=== PATIENT | male | born 1955 | race Caucasian/White ===

== ENCOUNTER 2016-04-18 | Outpatient (CLI) | payer OTHER | END 2016-04-18 12:45 | disposition critical access hospital (66) | CPT/HCPCS: A0425; A0427 ==

== ENCOUNTER 2016-04-18 13:13 | Emergency (ER) | payer OTHER | END 2016-04-18 14:53 | disposition home or self-care (01) | DX: G40.409 Other generalized epilepsy and epileptic syndromes, not intractable, without status epilepticus (principal) ==

== ENCOUNTER 2016-05-10 07:55 | Outpatient (CLI) | payer OTHER | END 2016-05-10 07:56 | disposition home or self-care (01) | DX: E87.6 Hypokalemia (principal); D50.9 Iron deficiency anemia, unspecified ==

== ENCOUNTER 2016-05-11 10:51 | Outpatient (CLI) | payer OTHER | END 2016-05-11 10:52 | disposition home or self-care (01) | DX: R56.9 Unspecified convulsions (principal); R90.89 Other abnormal findings on diagnostic imaging of central nervous system ==

== ENCOUNTER 2016-05-22 08:10 | Outpatient (CLI) | payer OTHER | END 2016-05-22 08:11 | disposition home or self-care (01) | DX: G40.909 Epilepsy, unspecified, not intractable, without status epilepticus (principal) ==

== ENCOUNTER 2016-08-14 08:00 | Outpatient (CLI) | payer OTHER | END 2016-08-14 08:01 | disposition home or self-care (01) | DX: G40.109 Localization-related (focal) (partial) symptomatic epilepsy and epileptic syndromes with simple partial seizures, not intractable, without status epilepticus (principal) ==

== ENCOUNTER 2017-05-22 15:55 | Outpatient (CLI) | payer OTHER | END 2017-05-22 15:56 | disposition critical access hospital (66) | LOC: EMS 15:55 | PROVIDERS: ATTEND Surgery | DX: R53.1 Weakness (principal); R56.9 Unspecified convulsions; R17 Unspecified jaundice | CPT/HCPCS: A0425; A0429 ==

== ENCOUNTER 2017-05-22 16:10 | Inpatient (IN) | payer OTHER ==
--- NOTE | 2017-05-22 16:42 | ED Physician Documentation ---
PD HPI ALTERED MENTAL STATUS - Stated complaint Stated Complaint: WEAKNESS - Chief complaint Chief Complaint: Neuro - History obtained from History obtained from: Patient - History of Present Illness Timing - onset: How many days ago (several days of increased weakness, confusion , less intake.) Timing - duration: Days (few) Timing - details: Gradual onset (daughter noted him to be weak, confused, with increased ascites, and notable jaundice (which he has not had to this degree before.)), Still present Quality / character: Less responsive Associated symptoms: Dyspnea, Cough. No: Fever, Headache, Stiff neck Contributing factors: Recent illness (has had some cough and congestion. feeling of chills. No noted fevers per se.). No: Recent med change Basline status: Alert and oriented X 3, Independent Similar symptoms before: Has not had sx before Review of Systems Constitutional: reports: Chills, Myalgias. denies: Fever Nose: reports: Congestion Throat: denies: Sore throat Cardiac: denies: Chest pain / pressure, Palpitations Respiratory: reports: Cough. denies: Dyspnea GI: reports: Abdominal Swelling. denies: Abdominal Pain, Vomiting, Diarrhea : denies: Dysuria, Frequency Skin: denies: Rash Neurologic: reports: Generalized weakness, Confused, Altered mental status. 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 HEENT: Tonsil/Adenoidectomy - Present Medications Home Medications: Ambulatory Orders Medication Instructions Recorded Confirmed Cetirizine HCl 5 mg PO DAILY PRN 05/22/17 05/22/17 Levetiracetam [Keppra] 500 mg PO BID 05/22/17 05/22/17 Mirtazapine 15 mg PO QPM 05/22/17 05/22/17 Pantoprazole [Protonix] 40 mg PO QDAC 05/22/17 05/22/17 Spironolactone 25 mg PO DAILY 05/22/17 05/22/17 - Allergies Allergies/Adverse Reactions: Allergies Allergy/AdvReac Type Severity Reaction Status Date / Time No Known Drug Allergies Allergy Verified 05/22/17 16:21 - Living Situation Living Situation: reports: With family Living Arrangement: reports: At home - Social History Does the pt smoke?: No Smoking Status: Never smoker Does the pt drink ETOH?: Yes ETOH Use: Beer (decreased amount recently, but still drinks "one" drink daily) Does the pt have substance abuse?: No - Immunizations Immunizations are current?: Yes PD ED PE NORMAL - Vitals Vital signs reviewed: Yes - General General: Alert and oriented X 3, No acute distress - HEENT HEENT: Atraumatic, Other (obvious jaundice and icteric pupils. ) - Neck Neck: Supple, no meningeal sign, No adenopathy - Cardiac Cardiac: RRR, No murmur - Respiratory Respiratory: No: Clear bilaterally (some fine congestion lower left. No wheezes. ) - Abdomen Abdomen: Soft, Non tender, Other (distended without tenseness. Not tender. ) - Male Male : Deferred - Rectal Rectal: Deferred - Back Back: No CVA TTP - Derm Derm: Warm and dry. No: Normal color (pale) - Extremities Extremities: No deformity, No tenderness to palpate, No calf tenderness / cord, Other (1+ edema in both legs to shins. ) - Neuro Neuro: No: Alert and oriented X 3 Eye Opening: To Voice Motor: Obeys Commands Verbal: Confused GCS Score: 13 - Psych Psych: Normal mood. No: Normal affect (flat) Results - Vitals Vitals: Vital Signs - 24 hr 05/22/17 05/22/17 16:16 20:12 Temperature 35.5 C L Heart Rate 99 100 Respiratory 18 20 Rate Blood Pressure 112/96 H 119/97 H O2 Saturation 97 100 Oxygen O2 Source Room air - Labs Labs: Laboratory Tests 05/22/17 05/22/17 05/22/17 17:44 17:44 17:44 WBC 8.1 RBC 4.57 L Hgb 17.0 Hct 49.1 MCV 107.5 H MCH 37.1 H MCHC 34.5 RDW 16.8 H Plt Count 112 L MPV 8.9 Neut # 6.9 H Lymph # 0.3 L [place] # 0.9 Eos # 0.0 Baso # 0.0 Absolute Nucleated RBC 0.03 Nucleated RBC % 0.4 Manual Slide Review Indicated WBC Morphology NORMAL APPEARANCE Platelet Estimate DECREASED (<130,000) Platelet Morphology NORMAL APPEARANCE RBC Morph Micro Appear 1+ POLYCHROMASIA PT INR Sodium 118 L* Potassium 4.4 Chloride 77 L* Carbon Dioxide 16 L Anion Gap 25.0 H BUN 57 H Creatinine 4.0 H Estimated GFR (MDRD) 15 L Glucose 115 H Calcium 8.7 Magnesium 1.8 Total Bilirubin 15.8 H AST 230 H ALT 125 H Alkaline Phosphatase 116 Ammonia 51.4 H B-Natriuretic Peptide Total Protein 5.6 L Albumin 3.2 Globulin 2.4 Albumin/Globulin Ratio 1.3 Lipase 42 TSH Urine Color Urine Clarity Urine pH Ur Specific [place] Urine Protein Urine Glucose (UA) Urine Ketones Urine Occult Blood Urine Nitrite Urine Bilirubin Urine Urobilinogen Ur Leukocyte Esterase Urine RBC Urine WBC Ur Squamous Epith Cells Urine Crystals Urine Bacteria Ur Microscopic Review Urine Culture Comments Salicylates 7.1 Acetaminophen < 10 L Ethyl Alcohol 21.9 05/22/1718 05/22/17 17:44 17:44 17:44 WBC RBC Hgb Hct MCV MCH MCHC RDW Plt Count MPV Neut # Lymph # [place] # Eos # Baso # Absolute Nucleated RBC Nucleated RBC % Manual Slide Review WBC Morphology Platelet Estimate Platelet Morphology RBC Morph Micro Appear PT 18.0 H INR 1.6 H Sodium Potassium Chloride Carbon Dioxide Anion Gap BUN Creatinine Estimated GFR (MDRD) Glucose Calcium Magnesium Total Bilirubin AST ALT Alkaline Phosphatase Ammonia B-Natriuretic Peptide 41 Total Protein Albumin Globulin Albumin/Globulin Ratio Lipase TSH 0.93 Urine Color Urine Clarity Urine pH Ur Specific [place] Urine Protein Urine Glucose (UA) Urine Ketones Urine Occult Blood Urine Nitrite Urine Bilirubin Urine Urobilinogen Ur Leukocyte Esterase Urine RBC Urine WBC Ur Squamous Epith Cells Urine Crystals Urine Bacteria Ur Microscopic Review Urine Culture Comments Salicylates Acetaminophen Ethyl Alcohol 05/22/17 19:20 WBC RBC Hgb Hct MCV MCH MCHC RDW Plt Count MPV Neut # Lymph # [place] # Eos # Baso # Absolute Nucleated RBC Nucleated RBC % Manual Slide Review WBC Morphology Platelet Estimate Platelet Morphology RBC Morph Micro Appear PT INR Sodium Potassium Chloride Carbon Dioxide Anion Gap BUN Creatinine Estimated GFR (MDRD) Glucose Calcium Magnesium Total Bilirubin AST ALT Alkaline Phosphatase Ammonia B-Natriuretic Peptide Total Protein Albumin Globulin Albumin/Globulin Ratio Lipase TSH Urine Color BROWN Urine Clarity CLOUDY Urine pH 5.0 Ur Specific [place] >=1.030 H Urine Protein 30 H Urine Glucose (UA) 100 H Urine Ketones 15 H Urine Occult Blood MODERATE H Urine Nitrite POSITIVE H Urine Bilirubin LARGE H Urine Urobilinogen >=8.0 H Ur Leukocyte Esterase MODERATE H Urine RBC 11-25 H Urine WBC >25 H Ur Squamous Epith Cells MOD Squamous H Urine Crystals 11-25 Bilirubin Urine Bacteria Moderate H Ur Microscopic Review INDICATED Urine Culture Comments NOT INDICATED Salicylates Acetaminophen Ethyl Alcohol - Rads (name of study) head CT Radiology: Prelim report reviewed, EMP read contemporaneously (no acute process. ) chest Radiology: Prelim report reviewed (atelectasis vs infiltrate left base. ) PD MEDICAL DECISION MAKING - ED course Complexity details: reviewed results (ammonia level is minimally elevated. SOdium is very low, so likely accounts for majority of symptoms. Likely dehydrated too with the acute jaundice. ), re-evaluated patient (improved some with IV fluids. Want to raise sodium level slowly. ), considered differential, d /w patient Departure - Departure Disposition: 66 [facility] DC/Xfer Clinical Impression: Hyponatremia Altered mental status Qualifiers: Altered mental status type: delirium Qualified Code(s): R41.0 - Disorientation , unspecified Liver failure without hepatic coma Qualifiers: Liver failure chronicity: unspecified chronicity Qualified Code(s): K72.90 - Hepatic failure, unspecified without coma Ascites Qualifiers: Ascites type: due to alcoholic cirrhosis Qualified Code(s): K70.31 - Alcoholic cirrhosis of liver with ascites Condition: Stable Record reviewed to determine appropriate education?: Yes Discharge Date/Time: 05/22/17 21:36
[2017-05-22] MEDS ORDERED: LACTULOSE 10 GM /15 ML UDC PO STA (17:35)
[2017-05-22] MEDS ORDERED: SODIUM CHLORIDE 0.9% 1,000 ML IV ONE ×2 (17:35→17:36)
[2017-05-22 17:53] LABS: BASOPHILS % (AUTO) 0.1 %; EOSINOPHILS % (AUTO) 0.2 %; LYMPHOCYTES # (AUTO) 0.3 10^3/uL (1.5-3.5); LYMPHOCYTES % (AUTO) 3.2 %; MEAN CORPUSCULAR HEMOGLOBIN 37.1 pg (27.0-31.0); MEAN CORPUSCULAR HGB CONC 34.5 g/dL (32.0-36.0); MEAN CORPUSCULAR VOLUME 107.5 fL (80.0-94.0); MEAN PLATELET VOLUME 8.9 fL (7.4-11.4); MONOCYTES # (AUTO) 0.9 10^3/uL (0.0-1.0); MONOCYTES % (AUTO) 11.2 %; NEUTROPHILS # (AUTO) 6.9 10^3/uL (1.5-6.6); NEUTROPHILS % (AUTO) 85.3 %; PLT - PLATELET COUNT 112 10^3/uL (130-450); RED BLOOD COUNT 4.57 10^6/uL (4.70-6.10); RED CELL DISTRIBUTION WIDTH 16.8 % (12.0-15.0); WHITE BLOOD COUNT 8.1 x10^3/uL (4.8-10.8)
--- NOTE | 2017-05-22 18:27 | CT Preliminary Report ---
Exam: CT HEAD W/O Impression: No intracranial hemorrhage, masses, or other discrete acute intracranial process identified. No dense vessels. Acute stroke is not excluded by CT. SITE ID: [id number]
--- NOTE | 2017-05-22 18:31 | CT Report ---
EXAM: CT HEAD WITHOUT CONTRAST COMPARISON: CT head, 02/26/2016. CLINICAL HISTORY: Confusion, seizure. TECHNIQUE: Axial CT images were obtained from the foramen magnum to the vertex without contrast. In accordance with CT protocol optimization, one or more of the following dose reduction techniques w ere utilized for this exam: automated exposure control, adjustment of mA and/or KV based on patient s ize, or use of iterative reconstructive technique. FINDINGS: No intracranial hemorrhage. No masses. No unexpected intra-axial or extra-axial fluid collections. Dystrophic calcification is demonstrated along the area of the left lateral falx/sigmoid sinus, as be fore. No discrete dense vessels. Visualized orbits, paranasal sinuses and mastoids are unremarkable. Ventricular size is normal. Visualized orbits, paranasal sinuses and mastoids are unremarkable. IMPRESSION: No intracranial hemorrhage, masses, or other discrete acute intracranial process identified. No dense vessels. Acute stroke is not excluded by CT. Referring Provider Line: [phone] SITE ID: [id number]
[2017-05-22 18:33] LABS: PLATELET ESTIMATE, MANUAL DECREASED (<130,000) (NORMAL); PLATELET MORPHOLOGY NORMAL APPEARANCE (NORMAL)
--- NOTE | 2017-05-22 18:35 | XRAY Report ---
EXAM: CHEST RADIOGRAPHY EXAM DATE: 05/22/2017 06:10 PM. CLINICAL HISTORY: Chest pain left sided. COMPARISON: 01/21/2014. TECHNIQUE: 2 views. FINDINGS: Lungs/Pleura: Interval decrease of lung volume. There is a new density overlying the lower lobe on th e lateral image, not well-seen on the frontal image. Upper lung zones are clear. There is no pneumoth orax. Mediastinum: Heart size is normal. Trachea is midline. Other: None. IMPRESSION: New left lower lobe density consistent with atelectasis, pneumonia, infarct, or possibly small left pleural effusion. [facility] Referring Provider Line: [phone] SITE ID: [id number]
[2017-05-22 18:45] LABS: ALBUMIN 3.2 g/dL (3.2-5.5); ALBUMIN/GLOBULIN RATIO 1.3 (1.0-2.2); ALKALINE PHOSPHATASE 116 IU/L (42-121); ALT ALANINE AMINOTRANSFERASE 125 IU/L (10-60); AST ASPARTATE AMINOTRANSFERASE 230 IU/L (10-42); BILIRUBIN,TOTAL 15.8 mg/dL (0.2-1.0); BUN - BLOOD UREA NITROGEN 57 mg/dL (6-20); CALCIUM 8.7 mg/dL (8.5-10.3); CARBON DIOXIDE - CO2 16 mmol/L (21-32); CHLORIDE 77 mmol/L (101-111); GFR - MDRD 15 (>89); GLUCOSE 115 mg/dL (70-100); LIPASE 42 U/L (22-51); MAGNESIUM 1.8 mg/dL (1.7-2.8); SALICYLATE 7.1 mg/dL; SODIUM 118 mmol/L (135-145); TOTAL PROTEIN 5.6 g/dL (6.7-8.2)
[2017-05-22 18:48] LABS: ACETAMINOPHEN < 10 ug/mL (10-30)
[2017-05-22 19:51] LABS: GLUCOSE, URINE (UA) 100 mg/dL (NEGATIVE); KETONES,URINE (UA) 15 mg/dL (NEGATIVE); LEUKOCYTE ESTERASE, URINE MODERATE (NEGATIVE); NITRITE,URINE POSITIVE (NEGATIVE); OCCULT BLOOD,URINE MODERATE (NEGATIVE); PROTEIN,URINE 30 mg/dL (NEGATIVE); UROBILINOGEN,URINE >=8.0 E.U./dL (NORMAL)
[2017-05-22 19:59] LABS: BILIRUBIN,URINE LARGE (NEGATIVE); CLARITY,URINE CLOUDY (CLEAR); ICTOTEST,URINE POSITIVE
[2017-05-22 20:00] LABS: BACTERIA,URINE Moderate /HPF (None Seen); CRYSTALS,URINE 11-25 Bilirubin /LPF; SQUAMOUS EPITHELIAL CELL,UR MOD Squamous (<= Few)
[2017-05-22] MEDS ORDERED: MORPHINE 2 MG/ML CARPUJECT IVP PRN (21:04)
[2017-05-22] MEDS ORDERED: CETIRIZINE 10 MG TABLET PO PRN (21:12)
[2017-05-22 21:15] LABS: INR 1.6 (0.8-1.2)
[2017-05-22] MEDS ORDERED: SODIUM CHLORIDE 0.9% 1,000 ML IV SCH (22:00)
[2017-05-22] MEDS: levETIRAcetam 250 MG TABLET PO SCH (22:09)
[2017-05-22] MEDS: MIRTAZAPINE 15 MG TABLET PO SCH (22:12)
--- NOTE | 2017-05-22 22:21 | CT Preliminary Report ---
Exam: CT ABDOMEN W/O IMPRESSION: 1. Cirrhosis. Heterogeneous liver with numerous hypodensities difficult to characterize on noncontras t CT. These most likely represent regenerative nodules. Consider further evaluation with multiphase l iver MRI or CT. 2. Oche-ks-gwlgcwec ascites. 3. Cholelithiasis. 4. Diverticulosis. 5. Nonobstructing left renal stones. 6. Small left pleural effusion. [facility] SITE ID: [id number]
[2017-05-22] MEDS: PROCHLORPERAZINE 10 MG/2 ML VIAL IVP PRN (22:24)
[2017-05-22] MEDS: SODIUM CHLORIDE FLUSH 0.9% 10 ML SYRINGE IVP SCH (22:24)
--- NOTE | 2017-05-22 22:30 | CT Report ---
EXAM: CT ABDOMEN EXAM DATE: 05/22/2017 09:53 PM. CLINICAL HISTORY: Jaundice, alcohol abuse. COMPARISON: 06/03/2014 CT abdomen pelvis. TECHNIQUE: Routine helical CT imaging was performed through the abdomen. IV contrast: No Enteric con trast: Yes Reconstruction: Coronal and sagittal. In accordance with CT protocol optimization, one or more of the following dose reduction techniques w ere utilized for this exam: automated exposure control, adjustment of mA and/or KV based on patient s ize, or use of iterative reconstructive technique. FINDINGS: Lung Bases: Small left pleural effusion. Liver: Small liver demonstrating nodular contours. There are innumerable hypodensities scattered thro ughout the liver difficult to characterize due to small size and noncontrast technique. Gallbladder/Bile Ducts: There is at least one gallstone noted hyperdense fluid within the gallbladder . No evidence of acute cholecystitis or bile duct obstruction. Spleen: Normal. Pancreas: Normal. Adrenal Glands: Normal. Kidneys: Nonobstructing 7 mm left mid renal stone with 2 punctate stones at the lower pole. The right kidney is unremarkable. Peritoneal Cavity/Bowel: Diverticulosis, no diverticulitis. No bowel obstruction or free air. The bita endix is well visualized and normal. Vasculature: No aneurysms or other significant abnormality. Bones: Interval development of a central compression fracture at L3 which extends through the thickne ss of the vertebra centrally. No acute bony abnormality. Other: None. IMPRESSION: 1. Cirrhosis. Heterogeneous liver with numerous hypodensities difficult to characterize on noncontras t CT. These most likely represent regenerative nodules. Consider further evaluation with multiphase l iver MRI or CT. 2. Awto-tf-aekpjcnf ascites. 3. Cholelithiasis. 4. Diverticulosis. 5. Nonobstructing left renal stones. 6. Small left pleural effusion. [facility] Referring Provider Line: [phone] SITE ID: [id number]
[2017-05-22] MEDS: SUCRALFATE 1 GM/10 ML UDC PO SCH (22:49)
[2017-05-22] MEDS: SODIUM CHLORIDE 0.9% 1,000 ML IV SCH (22:51)
[2017-05-22] MEDS ORDERED: LACTULOSE 10 GM /15 ML UDC PO SCH (23:00)
[2017-05-23] MEDS ORDERED: MULTIVITAMIN IV SCH (01:00)
[2017-05-23] MEDS ORDERED: SODIUM CHLORIDE IV SCH (01:00)
[2017-05-23] MEDS ORDERED: THIAMINE INJ 100 MG, FOLIC ACID INJ 1 MG in SODIUM CHLORIDE 0.9% 100ML 100 ML IV SCH ×6 (01:00)
[2017-05-23] MEDS ORDERED: LORazepam 2 MG/ML VIAL IVP PRN (01:14)
[2017-05-23] MEDS: SODIUM CHLORIDE FLUSH 0.9% 10 ML SYRINGE IVP SCH ×3 (01:34→18:03)
[2017-05-23] MEDS ORDERED: SODIUM CHLORIDE 0.9% 500 ML IV ONE (02:12)
[2017-05-23] MEDS: CIPROFLOXACIN 200 MG/100 ML 100 ML IV SCH ×2 (02:35→14:10)
--- NOTE | 2017-05-23 03:56 | HISTORY & PHYSICAL EXAMINATION ---
DATE OF SERVICE: 05/22/2017 Physician: Val Okeefe MD HISTORY OF PRESENT ILLNESS: This is a 61-year-old, white male with a history of lifelong alcoholism according to his daughter; she gives me most of his history. The patient was from his approximately 20 years ago and became even a more heavy alcoholic than he was during his marriage. This week is emotionally difficult for the patient because of the loss of a child who was 2 days old, many years ago, adding to his binging. The daughter, who lived out of town, has moved back locally for a new job and is now aware of her father's activities , and checks on him frequently. 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 Before that, he would drink after work and heavily on weekends, but now that he has been home for 5 weeks he drinks nearly all day. He drinks approximately a liter of whiskey daily, sometimes more heavily. The daughter reports that approximately a year and a half ago, he had a seizure while at work and was brought to the emergency room, and felt to have alcohol withdrawal seizures. Apparently, he was stabilized and discharged from the ER, never needed admission. The patient has told his 2 daughters that "he bought a condo for their financial benefit after he dies." This daughter also reports that the patient often has comments such as this regarding being ready to . The family has offered him help for alcohol abstinence, and he refuses this. The daughter lived right with the patient during the previous 2 months and witnessed that he had terrible nutrition; he would buy fast food, but only eat part of it or eat little bits of frozen dinners. She has not been living with him for several weeks and was speaking to him on the phone 1 or 2 days ago and noticed that his speech was somewhat slurred and that he was even more confused than his usual. The patient's sister then called him, and the patient mentioned that the daughter was coming over, so the sister called this daughter who agreed that the father was confused and went to check on him. When she entered the residence, she noticed his feces in places on the floor, a broken chair and nearly no food in the residence, and that he had a garbage can near his favorite chair where he would be throwing up. The patient has said to the daughter in the past that he is on medicine for liver disease and possibly for varices. The daughter is not sure that there has ever been hematemesis or coffee grounds in his vomit. The patient reports to me that he fell in his house because of being "unsteady with his gait and needing to hold onto things when he walks. He scraped his left knee" and also has a large bruise surrounding it. This fall was not witnessed, but the daughter did say that one of his chairs to a table set is broken. When the daughter found the patient in this type of condition plus his confusion, he was brought to the emergency room tonight. Since here, he is somewhat confused, but able to answer in short sentences, and was nauseated with vomiting. The vomitus was dark brown in color, but no chao blood. The patient denies to me that he has pain anywhere or that he is short of breath, and as he answers his eyelids close off as if he is exhausted. MEDICATIONS AT HOME were supposed to be the following, but it is unclear if he took them: 1. 5 mg p.o. daily. 2. Keppra 500 mg p.o. b.i.d. 3. Mirtazapine 15 mg p.o. q.p.m. 4. Protonix 40 mg p.o. daily. 5. Spironolactone 25 mg p.o. daily. ALLERGIES: NO KNOWN ALLERGIES. FAMILY HISTORY: Both of the patient's parents were alcoholics. He has two daughters who are healthy. SOCIAL HISTORY: The patient never smoked, except in his 20s. He uses alcohol excessively, as above. The daughter states he uses no illicit drugs, except over 30 years ago he did use some cocaine. He lives alone, is estranged from his ex-, has contact with both daughters and a sister of his. REVIEW OF SYSTEMS: A comprehensive review of systems was performed and the pertinent positives are as listed above. There is a history of lithotripsy of kidney stones. PHYSICAL EXAMINATION GENERAL: Cachectic, white male with a distended abdomen. He speaks in soft tones and short sentences. His eyelids close, as if drifting off to sleep, as he is speaking and he has skin and scleral jaundice. VITAL SIGNS: Blood pressure 112/96, pulse is 100 in sinus rhythm, he is hypothermic at 35.5, oxygen saturation 97% on room air. HEENT: Reveals dry oral mucosa, scleral icterus. No nystagmus. NECK: Without JVD, carotid bruits, thyromegaly, or lymphadenopathy. CHEST: Clear at both bases. HEART: Heart sounds normal. No audible murmur. ABDOMEN: Distended. There is no palpable liver edge. There is probable ascites. Nontender. Normal bowel sounds. EXTREMITIES: No clubbing, cyanosis or edema. The left knee has a large, 5 x 5 cm scrape with a fresh scab and the surrounding entire knee has an ecchymosis. NEUROLOGIC: Confused intermittently, appears fatigued. No liver flap of his arms, otherwise grossly intact. LABORATORIES: Sodium 118, potassium 4.4, BUN 57, creatinine 4.0, magnesium 1.8 , AST 230, ALT 125. Bilirubin 15. Ammonia level 51. BNP 41. TSH normal. INR 1.6. White blood count 8, hemoglobin 17, MCV 107, RDW 16.8, platelet count 112. Serum toxicology has positive salicylates at 7.1. No Tylenol in the system and positive alcohol at 21.9. Urinalysis showed a high specific gravity of 1.030, cloudy, moderate occult blood, positive nitrites, moderate leukocyte esterase, high WBCs and moderate bacteria. IMAGING: Head CT showed no acute findings such as hemorrhage, mass or an intracranial process. Chest x-ray showed left lower lobe density that could be atelectasis or infiltrate or infarct or small pleural effusion, and the heart size is normal. Abdomen CT scan without contrast was done that showed a small left pleural effusion, a small liver with nodular contours that are innumerable and hypodense which could be regenerating nodules. There is mild to moderate ascites. There is mild cholelithiasis without obstruction. There is mild diverticulosis. There is a nonobstructing left renal stone. IMPRESSION/DIAGNOSES 1. Altered mental status, which is probably multifactorial: from dehydration, hyponatremia, a UTI, uremia and alcoholism. 2. Hyponatremia. 3. Jaundice. 4. Renal failure, which could be from hepatorenal syndrome or from severe dehydration. 5. Urinary tract infection. 6. Elevated MCV and elevated INR consistent with liver failure. 7. Alcohol abuse with prior alcohol withdrawal seizures. PLAN: Place the patient in MedSur bed with a CIWA protocol and start Ativan for DT precautions. Begin IV hydration with saline, and follow his hyponatremia and creatinine. Begin thiamine and folate replacement, and follow his liver test and ammonia level. Follow his bilirubin as it appears that there is no obstructive lesion to be causing this elevation. Watch for worsening ascites as he is being hydrated, and then a surgical consult may be necessary for paracentesis. Begin Carafate and stress ulcer prophylaxis with IV Protonix. Begin a soft diet in case there are varices and watch for hematemesis. If the uremia does not improve with hydration, this is a bad prognosis; which was discussed with the daughter. The daughter is not sure if there are any forms in his home indicating his code wishes, she will speak to the aunt (the patient's sister) to determine if anyone knows. At this point, the patient's code status is FULL CODE; however, the daughter believes that the patient would prefer to be a DNR when he is able to make his own choices known. DEEP VENOUS THROMBOSIS PROPHYLAXIS: SCDs. CODE STATUS: FULL CODE. ATTESTATION: The patient is expected to be discharged or transferred to another facility within 96 hours: Yes. TD: 05/23/2017 03:54 ISA
[2017-05-23 05:31] LABS: BASOPHILS % (AUTO) 0.2 %; EOSINOPHILS % (AUTO) 0.1 %; HGB - HEMOGLOBIN 15.8 g/dL (14.0-18.0); LYMPHOCYTES # (AUTO) 0.3 10^3/uL (1.5-3.5); LYMPHOCYTES % (AUTO) 4.1 %; MEAN CORPUSCULAR HGB CONC 34.4 g/dL (32.0-36.0); MEAN CORPUSCULAR VOLUME 107.5 fL (80.0-94.0); MEAN PLATELET VOLUME 8.9 fL (7.4-11.4); MONOCYTES # (AUTO) 0.6 10^3/uL (0.0-1.0); MONOCYTES % (AUTO) 8.8 %; NEUTROPHILS # (AUTO) 5.9 10^3/uL (1.5-6.6); NEUTROPHILS % (AUTO) 86.8 %; PLT - PLATELET COUNT 85 10^3/uL (130-450); RED BLOOD COUNT 4.28 10^6/uL (4.70-6.10); RED CELL DISTRIBUTION WIDTH 16.7 % (12.0-15.0); WHITE BLOOD COUNT 6.8 x10^3/uL (4.8-10.8)
[2017-05-23 05:45] LABS: ALBUMIN 2.7 g/dL (3.2-5.5); ALBUMIN/GLOBULIN RATIO 1.2 (1.0-2.2); BILIRUBIN,TOTAL 14.5 mg/dL (0.2-1.0); CREATININE 4.5 mg/dL (0.6-1.2); TOTAL PROTEIN 4.9 g/dL (6.7-8.2)
[2017-05-23] MEDS ORDERED: SODIUM CHLORIDE 0.9% 50 ML IV ONE (06:00)
[2017-05-23] MEDS: THIAMINE INJ 100 MG in SODIUM CHLORIDE 0.9% 50 ML IV SCH (06:07)
[2017-05-23] MEDS: PANTOPRAZOLE 40 MG VIAL IVP SCH (06:09)
[2017-05-23] MEDS: SODIUM CHLORIDE FLUSH 0.9% 10 ML SYRINGE IVP PRN (06:09)
[2017-05-23] MEDS: SUCRALFATE 1 GM/10 ML UDC PO SCH ×4 (06:16→21:18)
[2017-05-23] MEDS: LACTULOSE 10 GM /15 ML UDC PO SCH (08:39)
[2017-05-23] MEDS: POLYETHYLENE GLYCOL 3350 17 GM PACKET PO SCH (08:39)
[2017-05-23] MEDS: levETIRAcetam 250 MG TABLET PO SCH ×2 (08:42→20:32)
[2017-05-23] MEDS: SODIUM CHLORIDE 1 GM TABLET PO SCH ×3 (08:44→17:41)
[2017-05-23] MEDS ORDERED: NITROFURANTOIN MACRO 100 MG CAPSULE PO SCH (09:00)
[2017-05-23] MEDS ORDERED: SODIUM CHLORIDE 3% HYPERTONIC 500 ML IV SCH (10:00)
[2017-05-23 12:45] LABS: CALCIUM 8.1 mg/dL (8.5-10.3); CREATININE 4.7 mg/dL (0.6-1.2)
[2017-05-23 15:24] LABS: CALCIUM 7.8 mg/dL (8.5-10.3); CREATININE 4.9 mg/dL (0.6-1.2)
--- NOTE | 2017-05-23 17:44 | PROVIDER PROGRESS NOTE ---
Subjective - Prog Note Date Prog Note Date: 05/23/17 Prog Note Time: 16:00 - Subjective Pt reports feeling: Improved (Pt says he feels better but still seems significantly obtunded. Oriented to person, place, year and president.) Current Medications - Current Medications Current Medications: Zyrtec, Cipro, lactulose, Keppra, lorazepam, mirtazapine, morphine, Pantoprazole , polyethylene glycol, prochlorperazine, sodium chloride, Carafate, thiamine Objective - Vital Signs/Intake & Output Reviewed Vital Signs: Yes Vital Signs: Vital Signs x48h Temp Pulse Resp BP Pulse Ox 05/23/17 16:00 36.6 C 106 H 20 103/65 92 Intake & Output: Intake & Output 05/20/17 05/21/17 05/22/17 05/23/17 23:59 23:59 23:59 23:59 Intake Total 1100 1609.533 Output Total 100 260 Balance 1000 1349.533 - Objective General Appearance: positive: No acute distress, Lethargic Eyes Bilateral: positive: Normal inspection, EOMI, No lid inflammation, Other ( Scleral icterus noted on exam.) ENT: positive: ENT inspection nml, Pharynx nml, No signs of dehydration Neck: positive: Nml inspection, Thyroid nml, No JVD, Trachea midline. negative : Thyromegaly Respiratory: positive: Chest non-tender, No respiratory distress, Breath sounds nml. negative: Wheezes, Rales, Rhonchi Cardiovascular: positive: Regular rate & rhythm, No murmur, No gallop Abdomen: positive: Non-tender, No organomegaly, Nml bowel sounds, No distention. negative: Guarding, Rebound Back: positive: Nml inspection. negative: CVA tenderness (R), CVA tenderness (L ) Skin: positive: Color nml, No rash, Warm, Dry. negative: Cyanosis Extremities: positive: Non-tender, Full ROM, Nml appearance, No pedal edema Neurologic/Psychiatric: positive: Weakness, Depressed mood/affect, Other (The patient is obtunded but less so than he had been previous to the administration of hypertonic saline.). negative: Facial droop, Slurred/abnml speech - Lab Results Fish Bones: 05/23/17 05:20 05/23/17 14:51 Other Labs: Lab Results x24hrs 05/23/17 05/23/17 05/23/17 Range/Units 14:51 12:29 05:20 WBC (4.8-10.8) x10^3/uL RBC (4.70-6.10) 10^6/uL Hgb (14.0-18.0) g/dL Hct (42.0-52.0) % MCV (80.0-94.0) fL MCH (27.0-31.0) pg MCHC (32.0-36.0) g/dL RDW (12.0-15.0) % Plt Count (130-450) 10^3/uL MPV (7.4-11.4) fL Neut # (1.5-6.6) 10^3/uL Lymph # (1.5-3.5) 10^3/uL Spink # (0.0-1.0) 10^3/uL Eos # (0.0-0.7) 10^3/uL Baso # (0.0-0.1) 10^3/uL Absolute Nucleated RBC x10^3/uL Nucleated RBC % /100WBC Sodium 121 L 123 L (135-145) mmol/L Potassium 4.4 4.2 (3.5-5.0) mmol/L Chloride 86 L 83 L (101-111) mmol/L Carbon Dioxide 18 L 19 L (21-32) mmol/L Anion Gap 17.0 H 21.0 H (6-13) BUN 65 H 63 H (6-20) mg/dL Creatinine 4.9 H 4.7 H (0.6-1.2) mg/dL Estimated GFR (MDRD) 12 L 13 L (>89) Glucose 185 H 179 H (70-100) mg/dL Calcium 7.8 L 8.1 L (8.5-10.3) mg/dL Total Bilirubin (0.2-1.0) mg/dL AST (10-42) IU/L ALT (10-60) IU/L Alkaline Phosphatase (42-121) IU/L Ammonia 111.3 H* (7-35) umol/L Total Protein (6.7-8.2) g/dL Albumin (3.2-5.5) g/dL Globulin (2.1-4.2) g/dL Albumin/Globulin Ratio (1.0-2.2) 05/23/17 05/23/17 Range/Units 05:20 05:20 WBC 6.8 (4.8-10.8) x10^3/uL RBC 4.28 L (4.70-6.10) 10^6/uL Hgb 15.8 (14.0-18.0) g/dL Hct 46.1 (42.0-52.0) % MCV 107.5 H (80.0-94.0) fL MCH 37.0 H (27.0-31.0) pg MCHC 34.4 (32.0-36.0) g/dL RDW 16.7 H (12.0-15.0) % Plt Count 85 L (130-450) 10^3/uL MPV 8.9 (7.4-11.4) fL Neut # 5.9 (1.5-6.6) 10^3/uL Lymph # 0.3 L (1.5-3.5) 10^3/uL Spink # 0.6 (0.0-1.0) 10^3/uL Eos # 0.0 (0.0-0.7) 10^3/uL Baso # 0.0 (0.0-0.1) 10^3/uL Absolute Nucleated RBC 0.02 x10^3/uL Nucleated RBC % 0.3 /100WBC Sodium 120 L* (135-145) mmol/L Potassium 4.2 (3.5-5.0) mmol/L Chloride 83 L (101-111) mmol/L Carbon Dioxide 17 L (21-32) mmol/L Anion Gap 20.0 H (6-13) BUN 59 H (6-20) mg/dL Creatinine 4.5 H (0.6-1.2) mg/dL Estimated GFR (MDRD) 13 L (>89) Glucose 147 H (70-100) mg/dL Calcium 8.0 L (8.5-10.3) mg/dL Total Bilirubin 14.5 H (0.2-1.0) mg/dL AST 209 H (10-42) IU/L ALT 118 H (10-60) IU/L Alkaline Phosphatase 100 (42-121) IU/L Ammonia (7-35) umol/L Total Protein 4.9 L (6.7-8.2) g/dL Albumin 2.7 L (3.2-5.5) g/dL Globulin 2.2 (2.1-4.2) g/dL Albumin/Globulin Ratio 1.2 (1.0-2.2) - Diagnostic Imaging Diagnostic Imaging Results: positive: Final report reviewed Diagnostic Imaging Comments: EXAM: CHEST RADIOGRAPHY EXAM DATE: 05/22/2017 06:10 PM. CLINICAL HISTORY: Chest pain left sided. COMPARISON: 01/21/2014. TECHNIQUE: 2 views. FINDINGS: Lungs/Pleura: Interval decrease of lung volume. There is a new density overlying the lower lobe on the lateral image, not well-seen on the frontal image. Upper lung zones are clear. There is no pneumothorax. Mediastinum: Heart size is normal. Trachea is midline. Other: None. IMPRESSION: New left lower lobe density consistent with atelectasis, pneumonia, infarct, or possibly small left pleural effusion. EXAM: CT HEAD WITHOUT CONTRAST COMPARISON: CT head, 02/26/2016. CLINICAL HISTORY: Confusion, seizure. TECHNIQUE: Axial CT images were obtained from the foramen magnum to the vertex without contrast. In accordance with CT protocol optimization, one or more of the following dose reduction techniques were utilized for this exam: automated exposure control, adjustment of mA and/or KV based on patient size, or use of iterative reconstructive technique. FINDINGS: No intracranial hemorrhage. No masses. No unexpected intra-axial or extra-axial fluid collections. Dystrophic calcification is demonstrated along the area of the left lateral falx /sigmoid sinus, as before. No discrete dense vessels. Visualized orbits, paranasal sinuses and mastoids are unremarkable. Ventricular size is normal. Visualized orbits, paranasal sinuses and mastoids are unremarkable. IMPRESSION: No intracranial hemorrhage, masses, or other discrete acute intracranial process identified. No dense vessels. Acute stroke is not excluded by CT. EXAM: CT ABDOMEN EXAM DATE: 05/22/2017 09:53 PM. CLINICAL HISTORY: Jaundice, alcohol abuse. COMPARISON: 06/03/2014 CT abdomen pelvis. TECHNIQUE: Routine helical CT imaging was performed through the abdomen. IV contrast: No Enteric contrast: Yes Reconstruction: Coronal and sagittal. In accordance with CT protocol optimization, one or more of the following dose reduction techniques were utilized for this exam: automated exposure control, adjustment of mA and/or KV based on patient size, or use of iterative reconstructive technique. FINDINGS: Lung Bases: Small left pleural effusion. Liver: Small liver demonstrating nodular contours. There are innumerable hypodensities scattered throughout the liver difficult to characterize due to small size and noncontrast technique. Gallbladder/Bile Ducts: There is at least one gallstone noted hyperdense fluid within the gallbladder. No evidence of acute cholecystitis or bile duct obstruction. Spleen: Normal. Pancreas: Normal. Adrenal Glands: Normal. Kidneys: Nonobstructing 7 mm left mid renal stone with 2 punctate stones at the lower pole. The right kidney is unremarkable. Peritoneal Cavity/Bowel: Diverticulosis, no diverticulitis. No bowel obstruction or free air. The appendix is well visualized and normal. Vasculature: No aneurysms or other significant abnormality. Bones: Interval development of a central compression fracture at L3 which extends through the thickness of the vertebra centrally. No acute bony abnormality. Other: None. IMPRESSION: 1. Cirrhosis. Heterogeneous liver with numerous hypodensities difficult to characterize on noncontrast CT. These most likely represent regenerative nodules. Consider further evaluation with multiphase liver MRI or CT. 2. [id number]-[id number] ascites. 3. Cholelithiasis. 4. Diverticulosis. 5. Nonobstructing left renal stones. 6. Small left pleural effusion. Assessment/Plan - Problem List (1) Altered mental status Impression: The patient is obtunded and this did improve slightly with the administration of hypertonic saline which was given for severe hyponatremia of 118. I will continue to administer 200ml more of 3%NS as the latest sodium level was 121. Will recheck a BMP this evening. Qualifiers: Altered mental status type: delirium Qualified Code(s): R41.0 - Disorientation, unspecified (2) Hyponatremia Impression: Severe. The patient has received 300 mL of 3% hypertonic saline and his sodium level has only come up a few points, but is no longer critical. I will administer another 200 mL and recheck the levels this evening. I am also giving the patient oral salt tablets when he can take them. (3) Alcohol abuse Impression: Severe. The patient reportedly drinks a quart of whiskey daily. He has cirrhosis with mild to moderate ascites and he is still obtunded. We have him on [facility] protocol for ETOH withdrawl with PRN ativan. (4) Prerenal acute renal failure Impression: The patient's creatinine is continuing to worsen despite administration of IV fluids. This may be in part due to the hypertonic saline he is getting for his severe hyponatremia. We will continue to hydrate the patient and monitor his creatinine closely.Previous admissions had his creatinine at less than 1. It is at 4.9 at this time. (5) Cirrhosis of liver with ascites Impression: The patient's alcoholism has caused significant cirrhosis with the associated expected electrolyte abnormalities. His cirrhosis has not caused a large enough ascites that warrants draining at this time. We will monitor him closely and look for signs of regeneration from his liver. Qualifiers: Hepatic cirrhosis type: alcoholic cirrhosis Qualified Code(s): K70.31 - Alcoholic cirrhosis of liver with ascites
[2017-05-23] MEDS ORDERED: SODIUM CHLORIDE 3% IV SCH (18:15)
[2017-05-23] MEDS ORDERED: HYPERTONIC IV SCH (18:15)
[2017-05-23] MEDS: SODIUM CHLORIDE 0.9% 1,000 ML IV SCH (18:37)
[2017-05-23 19:12] LABS: CALCIUM 7.9 mg/dL (8.5-10.3); CREATININE 4.7 mg/dL (0.6-1.2)
[2017-05-23] MEDS: LORazepam 0.5 MG TABLET PO PRN (19:40)
[2017-05-23] MEDS: MIRTAZAPINE 15 MG TABLET PO SCH (20:32)
[2017-05-24] MEDS: CIPROFLOXACIN 200 MG/100 ML 100 ML IV SCH ×2 (02:05→13:23)
[2017-05-24] MEDS: SUCRALFATE 1 GM/10 ML UDC PO SCH ×4 (06:51→20:50)
[2017-05-24] MEDS: SODIUM CHLORIDE FLUSH 0.9% 10 ML SYRINGE IVP PRN (06:52)
[2017-05-24] MEDS: SODIUM CHLORIDE FLUSH 0.9% 10 ML SYRINGE IVP SCH ×3 (06:52→20:53)
[2017-05-24] MEDS: PANTOPRAZOLE 40 MG VIAL IVP SCH (06:52)
[2017-05-24] MEDS: LACTULOSE 10 GM /15 ML UDC PO SCH (08:31)
[2017-05-24] MEDS: SODIUM CHLORIDE 1 GM TABLET PO SCH ×2 (08:31→11:54)
[2017-05-24] MEDS: SODIUM CHLORIDE 0.9% 1,000 ML IV SCH ×4 (08:31→22:34)
[2017-05-24] MEDS: levETIRAcetam 250 MG TABLET PO SCH ×2 (08:31→20:47)
[2017-05-24] MEDS: POLYETHYLENE GLYCOL 3350 17 GM PACKET PO SCH (08:31)
[2017-05-24 09:27] LABS: CALCIUM 7.7 mg/dL (8.5-10.3)
[2017-05-24] MEDS ORDERED: NIFEdipine ER 30 MG TABLET PO SCH (10:00)
--- NOTE | 2017-05-24 13:47 | PROVIDER PROGRESS NOTE ---
Subjective - Prog Note Date Prog Note Date: 05/24/17 Prog Note Time: 13:23 - Subjective Pt reports feeling: Improved (Pt is more responsive, less obtunded) Current Medications - Current Medications Current Medications: Zyrtec, Cipro, lactulose, Keppra, lorazepam, mirtazapine, morphine, Pantoprazole , polyethylene glycol, prochlorperazine, sodium chloride, Carafate, thiamine Objective - Vital Signs/Intake & Output Reviewed Vital Signs: Yes Vital Signs: Vital Signs x48h Temp Pulse Resp BP Pulse Ox 05/24/17 07:44 36.2 C L 98 18 124/69 94 Intake & Output: Intake & Output 05/21/17 05/22/17 05/23/17 05/24/17 23:59 23:59 23:59 23:59 Intake Total 1100 2358.866 1490 Output Total 100 260 50 Balance 1000 2098.866 1440 - Objective General Appearance: positive: No acute distress, Lethargic Eyes Bilateral: positive: Normal inspection, PERRL, EOMI, No lid inflammation, Conjunctivae nml, No scleral icterus ENT: positive: ENT inspection nml, Pharynx nml, No signs of dehydration Neck: positive: Nml inspection, Thyroid nml, No JVD, Trachea midline. negative : Thyromegaly Respiratory: positive: Chest non-tender, No respiratory distress, Breath sounds nml, Rales. negative: Wheezes, Rhonchi Cardiovascular: positive: Regular rate & rhythm, No murmur, No gallop, Irregularly irregular, Extrasystoles. negative: Tachycardia Abdomen: positive: Non-tender, No organomegaly, Nml bowel sounds, No distention. negative: Guarding, Rebound Back: positive: Nml inspection. negative: CVA tenderness (R), CVA tenderness (L ) Skin: positive: Color nml, No rash, Warm, Dry. negative: Cyanosis Extremities: positive: Non-tender, Full ROM, Nml appearance Neurologic/Psychiatric: positive: Oriented x3, CN's nml (2-12), Weakness. negative: Facial droop, Depressed mood/affect - Lab Results Fish Bones: 05/23/17 05:20 05/24/17 09:10 Other Labs: Lab Results x24hrs 0205/23/17 05/23/17 Range/Units 09:10 18:54 14:51 Sodium 123 L 124 L 121 L (135-145) mmol/L Potassium 4.0 3.8 4.4 (3.5-5.0) mmol/L Chloride 89 L 86 L 86 L (101-111) mmol/L Carbon Dioxide 19 L 20 L 18 L (21-32) mmol/L Anion Gap 15.0 H 18.0 H 17.0 H (6-13) BUN 73 H 66 H 65 H (6-20) mg/dL Creatinine 5.0 H 4.7 H 4.9 H (0.6-1.2) mg/dL Estimated GFR (MDRD) 12 L 13 L 12 L (>89) Glucose 176 H 154 H 185 H (70-100) mg/dL Calcium 7.7 L 7.9 L 7.8 L (8.5-10.3) mg/dL - Diagnostic Imaging Diagnostic Imaging Comments: EXAM: CHEST RADIOGRAPHY EXAM DATE: 05/22/2017 06:10 PM. CLINICAL HISTORY: Chest pain left sided. COMPARISON: 01/21/2014. TECHNIQUE: 2 views. FINDINGS: Lungs/Pleura: Interval decrease of lung volume. There is a new density overlying the lower lobe on the lateral image, not well-seen on the frontal image. Upper lung zones are clear. There is no pneumothorax. Mediastinum: Heart size is normal. Trachea is midline. Other: None. IMPRESSION: New left lower lobe density consistent with atelectasis, pneumonia, infarct, or possibly small left pleural effusion. EXAM: CT HEAD WITHOUT CONTRAST COMPARISON: CT head, 02/26/2016. CLINICAL HISTORY: Confusion, seizure. TECHNIQUE: Axial CT images were obtained from the foramen magnum to the vertex without contrast. In accordance with CT protocol optimization, one or more of the following dose reduction techniques were utilized for this exam: automated exposure control, adjustment of mA and/or KV based on patient size, or use of iterative reconstructive technique. FINDINGS: No intracranial hemorrhage. No masses. No unexpected intra-axial or extra-axial fluid collections. Dystrophic calcification is demonstrated along the area of the left lateral falx /sigmoid sinus, as before. No discrete dense vessels. Visualized orbits, paranasal sinuses and mastoids are unremarkable. Ventricular size is normal. Visualized orbits, paranasal sinuses and mastoids are unremarkable. IMPRESSION: No intracranial hemorrhage, masses, or other discrete acute intracranial process identified. No dense vessels. Acute stroke is not excluded by CT. EXAM: CT ABDOMEN EXAM DATE: 05/22/2017 09:53 PM. CLINICAL HISTORY: Jaundice, alcohol abuse. COMPARISON: 06/03/2014 CT abdomen pelvis. TECHNIQUE: Routine helical CT imaging was performed through the abdomen. IV contrast: No Enteric contrast: Yes Reconstruction: Coronal and sagittal. In accordance with CT protocol optimization, one or more of the following dose reduction techniques were utilized for this exam: automated exposure control, adjustment of mA and/or KV based on patient size, or use of iterative reconstructive technique. FINDINGS: Lung Bases: Small left pleural effusion. Liver: Small liver demonstrating nodular contours. There are innumerable hypodensities scattered throughout the liver difficult to characterize due to small size and noncontrast technique. Gallbladder/Bile Ducts: There is at least one gallstone noted hyperdense fluid within the gallbladder. No evidence of acute cholecystitis or bile duct obstruction. Spleen: Normal. Pancreas: Normal. Adrenal Glands: Normal. Kidneys: Nonobstructing 7 mm left mid renal stone with 2 punctate stones at the lower pole. The right kidney is unremarkable. Peritoneal Cavity/Bowel: Diverticulosis, no diverticulitis. No bowel obstruction or free air. The appendix is well visualized and normal. Vasculature: No aneurysms or other significant abnormality. Bones: Interval development of a central compression fracture at L3 which extends through the thickness of the vertebra centrally. No acute bony abnormality. Other: None. IMPRESSION: 1. Cirrhosis. Heterogeneous liver with numerous hypodensities difficult to characterize on noncontrast CT. These most likely represent regenerative nodules. Consider further evaluation with multiphase liver MRI or CT. 2. [id number] ascites. 3. Cholelithiasis. 4. Diverticulosis. 5. Nonobstructing left renal stones. 6. Small left pleural effusion. Assessment/Plan - Problem List (1) Altered mental status Impression: The patient's mental status is improved, but the pt is still confused. He is more awake and alert and communicative. Qualifiers: Altered mental status type: delirium Qualified Code(s): R41.0 - Disorientation, unspecified (2) Hyponatremia Impression: The patient was admitted with a severe hyponatremia of 118. I initially gave the pt 300 ml of 3% saline but then administered 200ml more of 3%NS as the latest sodium level was 121, which brought Na level to 123. Will continue to monitor Na levels, but it is recommended in the literature that we not try to correct anything above 120. (3) Alcohol abuse Impression: Chronic, pt's daughters believe that he is going to drink himself to . Pt has cirrhosis with mild to moderate ascites and he is still obtunded. (4) Prerenal acute renal failure Impression: The patient's creatinine is continuing to worsen despite administration of IV fluids. This may be in part due to the hypertonic saline he is getting for his severe hyponatremia, or may be a manifestation of hepato-renal symdrome. We will continue to hydrate the patient and monitor his creatinine closely.Previous admissions had his creatinine at less than 1. It is at 4.9 at this time. (5) Cirrhosis of liver with ascites Impression: The patient's alcoholism has caused significant cirrhosis with the associated expected electrolyte abnormalities. His cirrhosis has not caused a large enough ascites that warrants draining at this time. We will monitor him closely and look for signs of regeneration from his liver. Qualifiers: Hepatic cirrhosis type: alcoholic cirrhosis Qualified Code(s): K70.31 - Alcoholic cirrhosis of liver with ascites
[2017-05-24] MEDS: MIRTAZAPINE 15 MG TABLET PO SCH (20:47)
[2017-05-25] MEDS: CIPROFLOXACIN 200 MG/100 ML 100 ML IV SCH ×2 (02:40→14:53)
[2017-05-25] MEDS: SODIUM CHLORIDE FLUSH 0.9% 10 ML SYRINGE IVP SCH ×3 (04:39→22:09)
[2017-05-25] MEDS: SODIUM CHLORIDE 0.9% 1,000 ML IV SCH ×3 (04:48→22:09)
[2017-05-25 05:47] LABS: HGB - HEMOGLOBIN 15.8 g/dL (14.0-18.0); MEAN CORPUSCULAR HEMOGLOBIN 37.5 pg (27.0-31.0); MEAN CORPUSCULAR HGB CONC 34.8 g/dL (32.0-36.0); MEAN CORPUSCULAR VOLUME 107.8 fL (80.0-94.0); MEAN PLATELET VOLUME 8.9 fL (7.4-11.4); RED BLOOD COUNT 4.22 10^6/uL (4.70-6.10); RED CELL DISTRIBUTION WIDTH 17.5 % (12.0-15.0); WHITE BLOOD COUNT 9.8 x10^3/uL (4.8-10.8)
[2017-05-25 06:10] LABS: CREATININE 5.1 mg/dL (0.6-1.2)
[2017-05-25] MEDS: PANTOPRAZOLE 40 MG VIAL IVP SCH (06:38)
[2017-05-25] MEDS: SODIUM CHLORIDE FLUSH 0.9% 10 ML SYRINGE IVP PRN (06:38)
[2017-05-25] MEDS: SUCRALFATE 1 GM/10 ML UDC PO SCH ×4 (06:39→22:09)
[2017-05-25] MEDS: levETIRAcetam 250 MG TABLET PO SCH ×2 (08:07→20:23)
[2017-05-25] MEDS: LACTULOSE 10 GM /15 ML UDC PO SCH (08:07)
[2017-05-25] MEDS: POLYETHYLENE GLYCOL 3350 17 GM PACKET PO SCH (08:07)
--- NOTE | 2017-05-25 10:31 | PROVIDER PROGRESS NOTE ---
Subjective - Prog Note Date Prog Note Date: 05/25/17 Prog Note Time: 10:25 - Subjective Pt reports feeling: Improved (Pt is more awake and alert. Wearing glasses for the first time since admission, self feeding now, requesting help to the bathroom now.) Current Medications - Current Medications Current Medications: Zyrtec, Cipro, lactulose, Keppra, lorazepam, mirtazapine, morphine, Pantoprazole , polyethylene glycol, prochlorperazine, sodium chloride, Carafate, thiamine Objective - Vital Signs/Intake & Output Reviewed Vital Signs: Yes Vital Signs: Vital Signs Temp Pulse Resp BP Pulse Ox 05/25/17 08:00 36.2 C L 90 20 99/68 96 Intake & Output: Intake & Output 05/22/17 05/23/17 05/24/17 05/25/17 23:59 23:59 23:59 23:59 Intake Total 1100 2358.866 3885.333 1119.167 Output Total 100 260 200 250 Balance 1000 2098.866 3685.333 869.167 - Objective General Appearance: positive: No acute distress, Other (Still somewhat obtunded but more lucid each day) Eyes Bilateral: positive: Normal inspection, PERRL, EOMI, No lid inflammation, Other (Scleral icterus noted) Eyes: OU Scleral icterus ENT: positive: ENT inspection nml, Pharynx nml, No signs of dehydration Neck: positive: Nml inspection, Thyroid nml, No JVD, Trachea midline. negative : Thyromegaly Respiratory: positive: Chest non-tender, No respiratory distress, Breath sounds nml. negative: Wheezes, Rales, Rhonchi Cardiovascular: positive: Regular rate & rhythm, No murmur, No gallop Abdomen: positive: Non-tender, No organomegaly, Nml bowel sounds, No distention. negative: Guarding, Rebound Back: positive: Nml inspection. negative: CVA tenderness (R), CVA tenderness (L ) Skin: positive: Color nml, No rash, Warm, Dry. negative: Cyanosis Extremities: positive: Non-tender, Full ROM, Nml appearance, No pedal edema Neurologic/Psychiatric: positive: CN's nml (2-12), Motor nml, Sensation nml, Mood/affect nml - Lab Results Fish Bones: 05/25/17 04:58 05/25/17 04:58 Other Labs: Lab Results x24hrs 05/25/17 05/25/17 05/24/17 Range/Units 04:58 04:58 13:15 WBC 9.8 (4.8-10.8) x10^3/uL RBC 4.22 L (4.70-6.10) 10^6/uL Hgb 15.8 (14.0-18.0) g/dL Hct 45.5 (42.0-52.0) % MCV 107.8 H (80.0-94.0) fL MCH 37.5 H (27.0-31.0) pg MCHC 34.8 (32.0-36.0) g/dL RDW 17.5 H (12.0-15.0) % Plt Count 94 L (130-450) 10^3/uL MPV 8.9 (7.4-11.4) fL Sodium 126 L (135-145) mmol/L Potassium 4.3 (3.5-5.0) mmol/L Chloride 91 L (101-111) mmol/L Carbon Dioxide 19 L (21-32) mmol/L Anion Gap 16.0 H (6-13) BUN 79 H (6-20) mg/dL Creatinine 5.1 H (0.6-1.2) mg/dL Estimated GFR (MDRD) 12 L (>89) Glucose 110 H (70-100) mg/dL Calcium 8.0 L (8.5-10.3) mg/dL Urine Sodium < 12.0 mmol/L Assessment/Plan - Problem List (1) Hepatorenal syndrome Impression: The patient's creatinine continues to worsen, despite his overall improvement in most other areas. Given the patient's cirrhosis, this is most likely hepatorenal syndrome. I will transfer him to the intensive care unit and start him on a norepinephrine drip with the goal to increase his map by 10 or more. We will also start him on [id number] albumin infusions. Overall the patient's condition appears to be improved- his mentation is clearing, he is wearing glasses for the first time since his admission, he is self-feeding for the first time, and is also able to tell us when he needs to toilet. (2) Altered mental status Impression: Improving but still confused. Pt now self feeding, asking to be toiletted, wearing glasses. Qualifiers: Altered mental status type: delirium Qualified Code(s): R41.0 - Disorientation, unspecified (3) Hyponatremia Impression: I am no longer actively treating this except with IV normal saline, and much like the patient's overall condition the sodium level is slightly improved today at 126, up from 123. (4) Alcohol abuse Impression: Severe, with associated cirrhosis. The patient is now in hepatorenal syndrome. If the patient can be saved, his daughters are in agreement that he will likely be back in the same state within months if not weeks. (5) Cirrhosis of liver with ascites Impression: The patient is now experiencing hepatorenal syndrome. He will moved into the intensive care unit for pressure support and albumin infusions. We will continue to monitor. Qualifiers: Hepatic cirrhosis type: alcoholic cirrhosis Qualified Code(s): K70.31 - Alcoholic cirrhosis of liver with ascites
[2017-05-25] MEDS: ALBUMIN 25% 12.5 GM/50 ML VIAL IV SCH ×8 (11:25→18:32)
[2017-05-25] MEDS: THIAMINE INJ 100 MG in SODIUM CHLORIDE 0.9% 50 ML IV SCH (14:45)
[2017-05-25] MEDS: MIRTAZAPINE 15 MG TABLET PO SCH (20:23)
[2017-05-26] MEDS: CIPROFLOXACIN 200 MG/100 ML 100 ML IV SCH ×2 (02:06→14:53)
[2017-05-26 05:44] LABS: HGB - HEMOGLOBIN 14.5 g/dL (14.0-18.0); MEAN CORPUSCULAR HEMOGLOBIN 38.2 pg (27.0-31.0); MEAN CORPUSCULAR HGB CONC 35.3 g/dL (32.0-36.0); MEAN CORPUSCULAR VOLUME 108.1 fL (80.0-94.0); MEAN PLATELET VOLUME 8.7 fL (7.4-11.4); RED BLOOD COUNT 3.8 10^6/uL (4.70-6.10); RED CELL DISTRIBUTION WIDTH 16.7 % (12.0-15.0); WHITE BLOOD COUNT 6.4 x10^3/uL (4.8-10.8)
[2017-05-26] MEDS: SUCRALFATE 1 GM/10 ML UDC PO SCH ×4 (06:04→21:56)
[2017-05-26] MEDS: PANTOPRAZOLE 40 MG VIAL IVP SCH (06:04)
[2017-05-26] MEDS: SODIUM CHLORIDE FLUSH 0.9% 10 ML SYRINGE IVP SCH ×3 (06:04→21:59)
[2017-05-26] MEDS: SODIUM CHLORIDE 0.9% 1,000 ML IV SCH ×3 (06:04→21:56)
[2017-05-26 06:12] LABS: MAGNESIUM 1.8 mg/dL (1.7-2.8); PHOSPHORUS 3.8 mg/dL (2.5-4.6)
[2017-05-26 06:30] LABS: CALCIUM 7.8 mg/dL (8.5-10.3); CREATININE 4.4 mg/dL (0.6-1.2)
[2017-05-26] MEDS: LACTULOSE 10 GM /15 ML UDC PO SCH (08:47)
[2017-05-26] MEDS: ALBUMIN 25% 12.5 GM/50 ML VIAL IV SCH ×8 (08:47→16:03)
[2017-05-26] MEDS: levETIRAcetam 250 MG TABLET PO SCH ×2 (08:48→20:55)
[2017-05-26] MEDS: POLYETHYLENE GLYCOL 3350 17 GM PACKET PO SCH (09:53)
[2017-05-26] MEDS: MIN OIL/DIMETHICON/COCONUT OIL 92 GM TUBE TOP PRN (15:47)
[2017-05-26] MEDS: CARBOXYMETHYLCELLULOSE OPHTH DROPS EACHEYE PRN (15:47)
--- NOTE | 2017-05-26 16:52 | PROVIDER PROGRESS NOTE ---
Subjective - Prog Note Date Prog Note Date: 05/26/17 Prog Note Time: 15:00 - Subjective Pt reports feeling: Improved (The patient's mentation continues to slightly improve daily. He is able to make simple wants and needs known but has difficulty with coordination and swallowing.) Current Medications - Current Medications Current Medications: Zyrtec, Cipro, lactulose, Keppra, lorazepam, mirtazapine, morphine, Pantoprazole , polyethylene glycol, prochlorperazine, sodium chloride, Carafate, thiamine Objective - Vital Signs/Intake & Output Reviewed Vital Signs: Yes Vital Signs: Vital Signs Temp Pulse Resp BP Pulse Ox 05/26/17 15:47 36.4 C L 92 16 134/84 H 96 05/26/17 14:40 91 13 118/67 95 05/26/17 13:00 36.6 C 96 13 132/76 H 94 Intake & Output: Intake & Output 05/23/17 05/24/17 05/25/17 05/26/17 23:59 23:59 23:59 23:59 Intake Total 2358.866 3885.333 4178.084 3456.313 Output Total 260 550 470 1221 Balance 2098.866 3685.333 3363.084 2331.313 - Objective General Appearance: positive: No acute distress, Alert, Other (The patient is alert but "not quite there." He answers questions appropriately but has difficulty focusing and is also somewhat tangential.) Eyes Bilateral: positive: Normal inspection, PERRL, EOMI, No lid inflammation, Conjunctivae nml ENT: positive: ENT inspection nml, Pharynx nml, No signs of dehydration. negative: Purulent nasal drainage, Pharyngeal erythema Neck: positive: Nml inspection, Thyroid nml, No JVD, Trachea midline. negative : Thyromegaly Respiratory: positive: Chest non-tender, No respiratory distress, Breath sounds nml. negative: Wheezes, Rales, Rhonchi Cardiovascular: positive: Regular rate & rhythm, No murmur, No gallop Abdomen: positive: Non-tender, No organomegaly, Nml bowel sounds, No distention. negative: Guarding, Rebound Back: positive: Nml inspection. negative: CVA tenderness (R), CVA tenderness (L ) Skin: positive: Color nml, No rash, Warm, Dry. negative: Cyanosis Extremities: positive: Non-tender, Full ROM, Nml appearance, No pedal edema Neurologic/Psychiatric: positive: CN's nml (2-12), Motor nml, Sensation nml, Mood/affect nml. negative: Facial droop, Slurred/abnml speech, Depressed mood/ affect - Lab Results Fish Bones: 05/26/17 05:18 05/26/17 05:18 Other Labs: Lab Results x24hrs 05/26/17 05/26/17 05/26/17 Range/Units 05:18 05:18 05:18 WBC (4.8-10.8) x10^3/uL RBC (4.70-6.10) 10^6/uL Hgb (14.0-18.0) g/dL Hct (42.0-52.0) % MCV (80.0-94.0) fL MCH (27.0-31.0) pg MCHC (32.0-36.0) g/dL RDW (12.0-15.0) % Plt Count (130-450) 10^3/uL MPV (7.4-11.4) fL Sodium 126 L (135-145) mmol/L Potassium 4.1 (3.5-5.0) mmol/L Chloride 95 L (101-111) mmol/L Carbon Dioxide 18 L (21-32) mmol/L Anion Gap 13.0 (6-13) BUN 84 H* (6-20) mg/dL Creatinine 4.4 H (0.6-1.2) mg/dL Estimated GFR (MDRD) 14 L (>89) Glucose 100 (70-100) mg/dL Calcium 7.8 L (8.5-10.3) mg/dL Phosphorus 3.8 (2.5-4.6) mg/dL Magnesium 1.8 (1.7-2.8) mg/dL Ammonia 46.7 H (7-35) umol/L 05/26/17 Range/Units 05:18 WBC 6.4 (4.8-10.8) x10^3/uL RBC 3.80 L (4.70-6.10) 10^6/uL Hgb 14.5 (14.0-18.0) g/dL Hct 41.1 L (42.0-52.0) % MCV 108.1 H (80.0-94.0) fL MCH 38.2 H (27.0-31.0) pg MCHC 35.3 (32.0-36.0) g/dL RDW 16.7 H (12.0-15.0) % Plt Count 73 L (130-450) 10^3/uL MPV 8.7 (7.4-11.4) fL Sodium (135-145) mmol/L Potassium (3.5-5.0) mmol/L Chloride (101-111) mmol/L Carbon Dioxide (21-32) mmol/L Anion Gap (6-13) BUN (6-20) mg/dL Creatinine (0.6-1.2) mg/dL Estimated GFR (MDRD) (>89) Glucose (70-100) mg/dL Calcium (8.5-10.3) mg/dL Phosphorus (2.5-4.6) mg/dL Magnesium (1.7-2.8) mg/dL Ammonia (7-35) umol/L Assessment/Plan - Problem List (1) Hepatorenal syndrome Impression: I was the patient into the intensive care unit yesterday to be placed on a norepinephrine drip and to be given infusions of albumin yesterday and today. This morning his creatinine has come down to 4.4 (from 5.1). His nurse notes that yesterday he had about twice the urine output that he had the day before and today it is about 4 times the amount. Await a.m. labs. (2) Altered mental status Qualifiers: Altered mental status type: delirium Qualified Code(s): R41.0 - Disorientation, unspecified (3) Hyponatremia Impression: I am no longer treating the patient's hyponatremia as this is not recommended in the setting of advanced cirrhosis. Despite no longer treating it the sodium level has held steady overnight and 126. I await tomorrow's labs for an indication of change in the trend. (4) Alcohol abuse Impression: Chronic, for well over 20 years. It is possible that we will be able to correct the patient's multiple medical issues and return him home however I believe that if he does not quit drinking he will likely not survive the next episode. I have spoken with the patient's social service coordinator and she is reaching out to his and him. (5) Cirrhosis of liver with ascites Impression: At this time patient appears to be improving slightly daily. I have told him that if he continues to drink he will not survive another episode like this. Qualifiers: Hepatic cirrhosis type: alcoholic cirrhosis Qualified Code(s): K70.31 - Alcoholic cirrhosis of liver with ascites
[2017-05-26] MEDS: MIRTAZAPINE 15 MG TABLET PO SCH (20:56)
[2017-05-27] MEDS: CIPROFLOXACIN 200 MG/100 ML 100 ML IV SCH ×2 (02:09→14:20)
[2017-05-27] MEDS: PROCHLORPERAZINE 10 MG/2 ML VIAL IVP PRN (03:20)
[2017-05-27 05:38] LABS: HGB - HEMOGLOBIN 13.7 g/dL (14.0-18.0); MEAN CORPUSCULAR HEMOGLOBIN 38.2 pg (27.0-31.0); MEAN CORPUSCULAR VOLUME 109.1 fL (80.0-94.0); MEAN PLATELET VOLUME 8.7 fL (7.4-11.4); RED BLOOD COUNT 3.59 10^6/uL (4.70-6.10); RED CELL DISTRIBUTION WIDTH 17.4 % (12.0-15.0); WHITE BLOOD COUNT 6.6 x10^3/uL (4.8-10.8)
[2017-05-27] MEDS: SODIUM CHLORIDE 0.9% 1,000 ML IV SCH ×2 (05:49→14:24)
[2017-05-27 05:50] LABS: CALCIUM 8.4 mg/dL (8.5-10.3); CREATININE 3.3 mg/dL (0.6-1.2)
[2017-05-27] MEDS: SODIUM CHLORIDE FLUSH 0.9% 10 ML SYRINGE IVP SCH ×3 (05:51→21:52)
[2017-05-27] MEDS: PANTOPRAZOLE 40 MG VIAL IVP SCH (06:04)
[2017-05-27] MEDS: SUCRALFATE 1 GM/10 ML UDC PO SCH ×4 (06:12→21:52)
[2017-05-27 08:21] LABS: FOLATE 1.76 ng/mL (5.90 - >24.8)
[2017-05-27] MEDS: MULTIVITAMIN 10 ML in SODIUM CHLORIDE 0.9% 1,000 ML IV SCH ×2 (08:44→11:04)
[2017-05-27] MEDS: THIAMINE INJ 100 MG, FOLIC ACID INJ 1 MG in SODIUM CHLORIDE 0.9% 100ML 100 ML IM SCH (08:45)
[2017-05-27] MEDS: PRENATAL VITAMIN TABLET PO SCH (09:13)
[2017-05-27] MEDS: levETIRAcetam 250 MG TABLET PO SCH ×2 (09:13→21:52)
[2017-05-27] MEDS: LACTULOSE 10 GM /15 ML UDC PO SCH (09:13)
[2017-05-27] MEDS: MIN OIL/DIMETHICON/COCONUT OIL 92 GM TUBE TOP PRN (09:21)
--- NOTE | 2017-05-27 14:57 | PROVIDER PROGRESS NOTE ---
Subjective - Prog Note Date Prog Note Date: 05/27/17 Prog Note Time: 15:00 - Subjective Pt reports feeling: Improved (Patient is a little bit sleepier today but when he is awake appears to be a little bit more lucid.) Current Medications - Current Medications Current Medications: Sodium chloride, thiamine, carboxymethylcellulose ophthalmic drops, Zyrtec, ciprofloxacin, lactulose, Keppra, Ativan, mineral oil, Remeron, morphine, Protonix, polyethylene glycol, vitamin, Compazine, Sodium chloride, Carafate Objective - Vital Signs/Intake & Output Reviewed Vital Signs: Yes Vital Signs: Vital Signs x48h Temp Pulse Resp BP Pulse Ox 05/27/17 12:59 36.3 C L 90 22 138/78 H 97 05/27/17 08:08 36.7 C 95 12 122/74 94 Intake & Output: Intake & Output 05/24/17 05/25/17 05/26/17 05/27/17 23:59 23:59 23:59 23:59 Intake Total 3885.333 4178.084 4754.000 2010.001 Output Total 787 283 4094 1300 Balance 3685.333 3363.084 2844.000 710.001 - Objective General Appearance: positive: No acute distress, Lethargic Eyes Bilateral: positive: Normal inspection, PERRL, EOMI, No lid inflammation, Conjunctivae nml, No scleral icterus ENT: positive: ENT inspection nml, Pharynx nml, No signs of dehydration Neck: positive: Nml inspection, Thyroid nml, No JVD, Trachea midline. negative : Thyromegaly Respiratory: positive: Chest non-tender, No respiratory distress, Breath sounds nml. negative: Wheezes, Rales, Rhonchi Cardiovascular: positive: Regular rate & rhythm, No murmur, No gallop Abdomen: positive: Non-tender, No organomegaly, Nml bowel sounds, No distention. negative: Guarding, Rebound Back: positive: Nml inspection. negative: CVA tenderness (R), CVA tenderness (L ) Skin: positive: Color nml, No rash, Warm, Dry. negative: Cyanosis Extremities: positive: Non-tender, Full ROM, Nml appearance, Pedal edema Neurologic/Psychiatric: positive: CN's nml (2-12), Weakness. negative: Facial droop, Slurred/abnml speech, Depressed mood/affect - Lab Results Fish Bones: 05/27/17 04:49 05/27/17 04:49 Other Labs: Lab Results x24hrs 05/27/17 05/27/17 05/27/17 Range/Units 04:49 04:49 04:49 WBC 6.6 (4.8-10.8) x10^3/uL RBC 3.59 L (4.70-6.10) 10^6/uL Hgb 13.7 L (14.0-18.0) g/dL Hct 39.1 L (42.0-52.0) % MCV 109.1 H (80.0-94.0) fL MCH 38.2 H (27.0-31.0) pg MCHC 35.0 (32.0-36.0) g/dL RDW 17.4 H (12.0-15.0) % Plt Count 60 L (130-450) 10^3/uL MPV 8.7 (7.4-11.4) fL Sodium 131 L (135-145) mmol/L Potassium 4.1 (3.5-5.0) mmol/L Chloride 97 L (101-111) mmol/L Carbon Dioxide 19 L (21-32) mmol/L Anion Gap 15.0 H (6-13) BUN 80 H* (6-20) mg/dL Creatinine 3.3 H (0.6-1.2) mg/dL Estimated GFR (MDRD) 19 L (>89) Glucose 105 H (70-100) mg/dL Calcium 8.4 L (8.5-10.3) mg/dL Vitamin B12 1388 H (180-914) pg/mL Folate 1.76 L (5.90 - >24.8) ng/mL Assessment/Plan - Problem List (1) Hepatorenal syndrome Impression: The patient was placed in the intensive care unit on a norepinephrine drip and given 100 g of albumin for 2 days. This has been effective at reversing the renal failure associated with hepatorenal syndrome and the patient's urine output is significantly improved. His creatinine has come down from 5.1-3.3 today. At this time the patient is stable enough to be moved back out of the intensive care unit to the medical floor and we will monitor him closely on telemetry while he is in hospital. (2) Altered mental status Qualifiers: Altered mental status type: delirium Qualified Code(s): R41.0 - Disorientation, unspecified (3) Hyponatremia Impression: Correcting, sodium level this morning was 131, up from 126 and a low of 118 on admission. (4) Cirrhosis of liver with ascites Impression: The patient's cirrhosis has caused significant medical issues for him including his hyponatremia and renal failure. These are being corrected. The patient's family is very anxious that he quit drinking however I have explained to them several times during our meeting today that he has to want to stop drinking for him to have any chance at success. Qualifiers: Hepatic cirrhosis type: alcoholic cirrhosis Qualified Code(s): K70.31 - Alcoholic cirrhosis of liver with ascites
[2017-05-27] MEDS: POLYETHYLENE GLYCOL 3350 17 GM PACKET PO SCH (16:18)
[2017-05-27] MEDS: MIRTAZAPINE 15 MG TABLET PO SCH (21:52)
[2017-05-28] MEDS: CIPROFLOXACIN 200 MG/100 ML 100 ML IV SCH ×2 (01:48→13:54)
[2017-05-28] MEDS: SODIUM CHLORIDE 0.9% 1,000 ML IV SCH ×2 (01:48→06:37)
[2017-05-28] MEDS: SODIUM CHLORIDE FLUSH 0.9% 10 ML SYRINGE IVP SCH ×3 (05:44→20:12)
[2017-05-28 05:59] LABS: CALCIUM 8.4 mg/dL (8.5-10.3); CREATININE 2.5 mg/dL (0.6-1.2)
[2017-05-28] MEDS: SODIUM CHLORIDE FLUSH 0.9% 10 ML SYRINGE IVP PRN (06:36)
[2017-05-28] MEDS: PANTOPRAZOLE 40 MG VIAL IVP SCH (06:36)
[2017-05-28] MEDS: SUCRALFATE 1 GM/10 ML UDC PO SCH ×4 (06:36→20:12)
[2017-05-28] MEDS: THIAMINE INJ 100 MG, FOLIC ACID INJ 1 MG in SODIUM CHLORIDE 0.9% 100ML 100 ML IM SCH (08:58)
[2017-05-28] MEDS: MULTIVITAMIN 10 ML in SODIUM CHLORIDE 0.9% 1,000 ML IV SCH (08:58)
[2017-05-28] MEDS: POLYETHYLENE GLYCOL 3350 17 GM PACKET PO SCH (09:02)
[2017-05-28] MEDS: LACTULOSE 10 GM /15 ML UDC PO SCH (10:54)
[2017-05-28] MEDS: levETIRAcetam 250 MG TABLET PO SCH ×2 (10:54→20:12)
[2017-05-28] MEDS: PRENATAL VITAMIN TABLET PO SCH (10:54)
--- NOTE | 2017-05-28 18:14 | PROVIDER PROGRESS NOTE ---
Assessment/Plan - Problem List (1) Hepatorenal syndrome Assessment/Plan: Creatinine is slowly improving. Continue iv and po hydration and avoid nephrotoxic agents (2) Cirrhosis of liver with ascites Qualifiers: Hepatic cirrhosis type: alcoholic cirrhosis Qualified Code(s): K70.31 - Alcoholic cirrhosis of liver with ascites Assessment/Plan: LFTs improving, off EtOH Continue to monitor imntermittently. (3) Altered mental status Qualifiers: Altered mental status type: disorientation Qualified Code(s): R41.0 - Disorientation, unspecified Assessment/Plan: This may be his baseline or from meds Will begin decreasing the prn Ativan Spot check ammonia level occaisionally Continue Lactulose The patient will need SNF or permanent NH placement, to be determined after PT starts and RN input regarding his ADLs (4) Hyponatremia Assessment/Plan: Improving with saline hydration and unrestricted diet (5) Alcohol abuse Assessment/Plan: Pt claims he "is done with drinking" but the family believes he will restart if he returns to the same home scenario, as he is not motivated. Pt already on antidepressnt (Mirtazipine). Continue this. - Current Meds Current Meds: Current Medications Generic Name Dose Route Start Last Admin Trade Name Freq PRN Reason Stop Dose Admin Carboxymethylcellulose 1 drops 05/26/17 14:05 05/26/17 15:47 Refresh 1% Ophth Drops EACHEYE 1 applic PRN PRN Administration Dry Eye Ciprofloxacin 100 mls @ 100 mls/hr 05/23/17 02:00 05/28/17 15:01 Cipro 200 Mg/100 Ml IV Infused Q12H TYRON Infusion Sodium Chloride 1,000 mls @ 125 mls/hr 05/24/17 22:05 05/28/17 09:01 Normal Saline 0.9% IV 0 mls/hr .Q8H TYRON Infusion Multivitamins 10 ml/ Sodium 1,010 mls @ 100 mls/hr 05/27/17 08:00 05/28/17 11 :16 Chloride IV 100 mls/hr DAILY TYRON Infusion Thiamine HCl 100 mg/ Folic 101.2 mls @ 50.6 mls/hr 05/27/17 09:00 05/28/17 08 :58 Acid 1 mg/ Sodium Chloride IM 50.6 mls/hr DAILY TYRON Administration Lactulose 10 gm 05/23/17 09:00 02/21/18 10:54 Enulose PO 10 gm DAILY TYRON Administration Levetiracetam 500 mg 05/22/17 22:00 05/28/17 10:54 Keppra PO 500 mg BID TYRON Administration Lorazepam 0.5 mg 05/22/17 22:43 05/23/17 19:40 Ativan PO 0.5 mg Q6H PRN Administration Anxiety Mineral Oil 1 applic 05/26/17 14:05 05/27/17 09:21 Cavilon TOP 1 applic PRN PRN Administration Skin Care Mirtazapine 15 mg 05/22/17 22:00 05/27/17 21:52 Remeron PO 15 mg QPM TYRON Administration Morphine Sulfate 2 mg 05/22/17 21:04 05/27/17 03:24 Morphine (Carpuject) IVP 2 mg Q2HR PRN Administration Pain 8 to 10 Pantoprazole Sodium 40 mg 05/23/17 07:00 05/28/17 06:36 Protonix IVP 40 mg QDAC TYRON Administration Polyethylene Glycol 17 gm 05/23/17 09:00 05/28/17 09:02 Miralax PO Not Given DAILY TYRON Multivit/Folic Acid/Iron 1 tab 05/27/17 08:00 05/28/17 10:54 Trinatal Rx 1 PO 1 tab DAILYWM TYRON Administration Prochlorperazine Edisylate 10 mg 05/22/17 21:04 05/27/17 03:20 Compazine Inj IVP 10 mg Q6HR PRN Administration Nausea / Vomiting Sodium Chloride 10 ml 05/22/17 21:04 05/28/17 06:36 Normal Saline Flush 0.9% IVP 10 ml PRN PRN Administration NEEDED PER PROVIDER ORDERS Sodium Chloride 10 ml 05/22/17 22:00 05/28/17 13:54 Normal Saline Flush 0.9% IVP 10 ml Q8HR TYRON Administration Sucralfate 1 gm 05/22/17 23:00 05/28/17 11:30 Carafate PO 1 gm 0700,1100,1600,2200 TYRON Administration - Lab Result Fish Bone Diagrams: 05/27/17 04:49 05/28/17 05:15 - Additional Planning My Orders: My Active Orders 05/28/17 Evaluate and Treat OT [OT] Routine Evaluate and Treat PT [PT] Routine Subjective - Subjective Patient Reports: Feeling Better, Other (Feels "tired from walking with PT today ".) Nursing Reports: Other (Sitting up in a chair) Objective Vital Signs: Vital Signs - 24 hr 05/27/17 05/28/17 05/28/17 21:00 00:20 04:10 Temperature 37.0 C 36.4 C L 36.7 C Heart Rate [ Activity] Heart Rate [ 92 96 92 Brachial] Heart Rate [ Sitting] Heart Rate [ Supine] Respiratory 13 18 18 Rate Blood Pressure [Activity] Blood Pressure 115/59 L 118/75 125/77 [Left Brachial artery] Blood Pressure [Sitting] Blood Pressure [Supine] O2 Saturation 95 96 95 05/28/17 05/28/17 05/28/17 07:33 13:00 14:50 Temperature 36.5 C 37.0 C Heart Rate [ 103 H Activity] Heart Rate [ 93 92 Brachial] Heart Rate [ 99 Sitting] Heart Rate [ 77 Supine] Respiratory 18 18 Rate Blood Pressure 110/71 [Activity] Blood Pressure 109/67 116/73 [Left Brachial artery] Blood Pressure 112/82 H [Sitting] Blood Pressure 116/73 [Supine] O2 Saturation 94 95 05/28/17 15:40 Temperature 36.6 C Heart Rate [ Activity] Heart Rate [ 98 Brachial] Heart Rate [ Sitting] Heart Rate [ Supine] Respiratory 16 Rate Blood Pressure [Activity] Blood Pressure 114/65 [Left Brachial artery] Blood Pressure [Sitting] Blood Pressure [Supine] O2 Saturation 95 Oxygen O2 Source Room air I&O (Last 24 Hrs): Intake and Output Totals x24h 05/26/17 05/27/17 05/28/17 23:59 23:59 23:59 Intake Total 4754.000 3120.001 1992.083 Output Total 1910 2250 1350 Balance 2844.000 870.001 642.083 General: Other (Icteric. Eyelids close as he speaks. Cannot remember if he signed a DNR POLST yesterday. Wants to sign a DNR "if one of his daughters is present".) HEENT: Mucous membr. moist/pink, Other (scleral icterus) Neck: Supple, No JVD Neuro: Other (Poor memory. No liver flap.) Cardiovascular: No murmurs Respiratory: No respiratory distress Abdomen: Other (Distended with ascites, non-tender, decreased BS) Extremities: No edema - Results Results: Laboratory Results WBC 6.6 x10^3/uL (4.8-10.8) 05/27/17 04:49 RBC 3.59 10^6/uL (4.70-6.10) L 05/27/17 04:49 Hgb 13.7 g/dL (14.0-18.0) L 05/27/17 04:49 Hct 39.1 % (42.0-52.0) L 05/27/17 04:49 MCV 109.1 fL (80.0-94.0) H 05/27/17 04:49 MCH 38.2 pg (27.0-31.0) H 05/27/17 04:49 MCHC 35.0 g/dL (32.0-36.0) 05/27/17 04:49 RDW 17.4 % (12.0-15.0) H 05/27/17 04:49 Plt Count 60 10^3/uL (130-450) L 05/27/17 04:49 MPV 8.7 fL (7.4-11.4) 05/27/17 04:49 Neut # 5.9 10^3/uL (1.5-6.6) 05/23/17 05:20 Lymph # 0.3 10^3/uL (1.5-3.5) L 05/23/17 05:20 Cross # 0.6 10^3/uL (0.0-1.0) 05/23/17 05:20 Eos # 0.0 10^3/uL (0.0-0.7) 05/23/17 05:20 Baso # 0.0 10^3/uL (0.0-0.1) 05/23/17 05:20 Absolute Nucleated RBC 0.02 x10^3/uL 05/23/17 05:20 Nucleated RBC % 0.3 /100WBC 05/23/17 05:20 Manual Slide Review Indicated 05/22/17 17:44 WBC Morphology NORMAL APPEARANCE (NORMAL) 05/22/17 17:44 Platelet Estimate DECREASED (<130,000) (NORMAL) 05/22/17 17:44 Platelet Morphology NORMAL APPEARANCE (NORMAL) 05/22/17 17:44 RBC Morph Micro Appear 2+ MACROCYTOSIS (NORMAL) 1+ POLYCHROMASIA (NORMAL) 05/22/17 17:44 RBC Morph Micro Appear 2+ MACROCYTOSIS (NORMAL) 1+ POLYCHROMASIA (NORMAL) 05/22/17 17:44 PT 18.0 secs (9.9-12.6) H 05/22/17 17:44 INR 1.6 (0.8-1.2) H 05/22/17 17:44 Sodium 132 mmol/L (135-145) L 05/28/17 05:15 Potassium 4.3 mmol/L (3.5-5.0) 05/28/17 05:15 Chloride 103 mmol/L (101-111) 05/28/17 05:15 Carbon Dioxide 19 mmol/L (21-32) L 05/28/17 05:15 Anion Gap 10.0 (6-13) 05/28/17 05:15 BUN 80 mg/dL (6-20) H* 05/28/17 05:15 Creatinine 2.5 mg/dL (0.6-1.2) H 05/28/17 05:15 Estimated GFR (MDRD) 26 (>89) L 05/28/17 05:15 Glucose 116 mg/dL (70-100) H 05/28/17 05:15 Serum Osmolality 303 mOsm/kg (278-305) 05/24/17 13:16 Calcium 8.4 mg/dL (8.5-10.3) L 05/28/17 05:15 Phosphorus 3.8 mg/dL (2.5-4.6) 05/26/17 05:18 Magnesium 1.8 mg/dL (1.7-2.8) 05/26/17 05:18 Total Bilirubin 14.5 mg/dL (0.2-1.0) H 05/23/17 05:20 AST 209 IU/L (10-42) H 05/23/17 05:20 ALT 118 IU/L (10-60) H 05/23/17 05:20 Alkaline Phosphatase 100 IU/L (42-121) 05/23/17 05:20 Ammonia 46.7 umol/L (7-35) H 05/26/17 05:18 B-Natriuretic Peptide 41 pg/mL (5-100) 05/22/17 17:44 Total Protein 4.9 g/dL (6.7-8.2) L 05/23/17 05:20 Albumin 2.7 g/dL (3.2-5.5) L 05/23/17 05:20 Globulin 2.2 g/dL (2.1-4.2) 05/23/17 05:20 Albumin/Globulin Ratio 1.2 (1.0-2.2) 05/23/17 05:20 Lipase 42 U/L (22-51) 05/22/17 17:44 Vitamin B12 1388 pg/mL (180-914) H 05/27/17 04:49 Folate 1.76 ng/mL (5.90 - >24.8) L 05/27/17 04:49 TSH 0.93 uIU/mL (0.34-5.60) 05/22/17 17:44 Urine Color BROWN 05/22/17 19:20 Urine Clarity CLOUDY (CLEAR) 05/22/17 19:20 Urine pH 5.0 PH (5.0-7.5) 05/22/17 19:20 Ur Specific Otis >=1.030 (1.002-1.030) H 05/22/17 19:20 Urine Protein 30 mg/dL (NEGATIVE) H 05/22/17 19:20 Urine Glucose (UA) 100 mg/dL (NEGATIVE) H 05/22/17 19:20 Urine Ketones 15 mg/dL (NEGATIVE) H 05/22/17 19:20 Urine Occult Blood MODERATE (NEGATIVE) H 05/22/17 19:20 Urine Nitrite POSITIVE (NEGATIVE) H 05/22/17 19:20 Urine Bilirubin LARGE (NEGATIVE) H 05/22/17 19:20 Urine Urobilinogen >=8.0 E.U./dL (NORMAL) H 05/22/17 19:20 Ur Leukocyte Esterase MODERATE (NEGATIVE) H 05/22/17 19:20 Urine RBC 11-25 /HPF (0-5) H 05/22/17 19:20 Urine WBC >25 /HPF (0-3) H 05/22/17 19:20 Ur Squamous Epith Cells MOD Squamous (<= Few) H 05/22/17 19:20 Urine Crystals 11-25 Bilirubin /LPF 05/22/17 19:20 Urine Bacteria Moderate /HPF (None Seen) H 05/22/17 19:20 Ur Microscopic Review INDICATED 05/22/17 19:20 Urine Culture Comments NOT INDICATED 05/22/17 19:20 Urine Sodium < 12.0 mmol/L 05/24/17 13:15 Salicylates 7.1 mg/dL 05/22/17 17:44 Acetaminophen < 10 ug/mL (10-30) L 05/22/17 17:44 Ethyl Alcohol 21.9 mg/dL 05/22/17 17:44 - Procedures Procedures: Procedures EXCISION OF ASCENDING COLON, ENDO (04/04/15) EXCISION OF STOMACH, ENDO, DIAGN (06/04/15) [ESWL] OF THE KIDNEY, URETER AND/OR BLADDER (10/31/14)
[2017-05-28] MEDS: LORazepam 0.5 MG TABLET PO PRN (20:12)
[2017-05-28] MEDS: MIRTAZAPINE 15 MG TABLET PO SCH (20:12)
[2017-05-28] MEDS: CARBOXYMETHYLCELLULOSE OPHTH DROPS EACHEYE PRN (20:15)
[2017-05-29] MEDS: CIPROFLOXACIN 200 MG/100 ML 100 ML IV SCH ×2 (01:22→14:39)
[2017-05-29] MEDS: SUCRALFATE 1 GM/10 ML UDC PO SCH ×4 (06:14→21:04)
[2017-05-29] MEDS: PANTOPRAZOLE 40 MG VIAL IVP SCH (06:14)
[2017-05-29] MEDS: SODIUM CHLORIDE FLUSH 0.9% 10 ML SYRINGE IVP PRN (06:14)
[2017-05-29] MEDS: SODIUM CHLORIDE FLUSH 0.9% 10 ML SYRINGE IVP SCH ×3 (06:14→17:19)
[2017-05-29] MEDS: SODIUM CHLORIDE 0.9% 1,000 ML IV SCH ×3 (06:36→21:43)
[2017-05-29] MEDS: PRENATAL VITAMIN TABLET PO SCH (08:42)
[2017-05-29] MEDS: levETIRAcetam 250 MG TABLET PO SCH ×2 (08:42→21:04)
[2017-05-29] MEDS: LACTULOSE 10 GM /15 ML UDC PO SCH (08:42)
[2017-05-29] MEDS: POLYETHYLENE GLYCOL 3350 17 GM PACKET PO SCH (08:42)
[2017-05-29] MEDS: THIAMINE INJ 100 MG, FOLIC ACID INJ 1 MG in SODIUM CHLORIDE 0.9% 100ML 100 ML IM SCH (11:16)
[2017-05-29] MEDS: MULTIVITAMIN 10 ML in SODIUM CHLORIDE 0.9% 1,000 ML IV SCH (11:16)
--- NOTE | 2017-05-29 15:42 | PROVIDER PROGRESS NOTE ---
Assessment/Plan - Problem List (1) Hepatorenal syndrome Assessment/Plan: Continued improvement in creat and good urine output. I was signed out today by the previous daytime Hospitalist that the Pt was never started on antibiotics for the UTI to avoid nephrotoxins. Will order po Macrodantin (2) Cirrhosis of liver with ascites Qualifiers: Hepatic cirrhosis type: alcoholic cirrhosis Qualified Code(s): K70.31 - Alcoholic cirrhosis of liver with ascites Assessment/Plan: Continue Lactulose Will stop any Ativan, in case any prn doses are causing slurred speecha nd eyelids closing (3) Altered mental status Qualifiers: Altered mental status type: disorientation Qualified Code(s): R41.0 - Disorientation, unspecified Assessment/Plan: Pt much less confused since just yesterday and agrees to SNF. Daughter prefers [facility], Pt is OK with [facility] or [facility] I will order a brain MRI regarding his slurred speecha nd facial droop, to R/O a CVA (4) Hyponatremia Assessment/Plan: Improving Will decrease iv rate (5) Alcohol abuse Assessment/Plan: Pt aware of his habit and states he wants to stop (6) UTI (urinary tract infection) Qualifiers: Urinary tract infection type: acute cystitis Assessment/Plan: I was signed out today by the previous daytime Hospitalist that the Pt was never started on antibiotics for the UTI to avoid nephrotoxins. Will order po Macrodantin. His non-obstructing renal stomne and history of kidney stones predispose him to UTIs. No hydronephrsis was seen on admission CT. - Current Meds Current Meds: Current Medications Generic Name Dose Route Start Last Admin Trade Name Freq PRN Reason Stop Dose Admin Carboxymethylcellulose 1 drops 05/26/17 14:05 05/28/17 20:15 Refresh 1% Ophth Drops EACHEYE 1 applic PRN PRN Administration Dry Eye Ciprofloxacin 100 mls @ 100 mls/hr 05/23/17 02:00 05/29/17 15:37 Cipro 200 Mg/100 Ml IV 0 mls/hr Q12H TYRON Infusion Multivitamins 10 ml/ Sodium 1,010 mls @ 100 mls/hr 05/27/17 08:00 05/29/17 15 :38 Chloride IV 0 mls/hr DAILY TYRON Infusion Thiamine HCl 100 mg/ Folic 101.2 mls @ 50.6 mls/hr 05/27/17 09:00 05/29/17 11 :16 Acid 1 mg/ Sodium Chloride IM 50.6 mls/hr DAILY TYRON Administration Lactulose 10 gm 05/23/17 09:00 05/29/17 08:42 Enulose PO 10 gm DAILY TYRON Administration Levetiracetam 500 mg 05/22/17 22:00 05/29/17 08:42 Keppra PO 500 mg BID TYRON Administration Mineral Oil 1 applic 05/26/17 14:05 05/27/17 09:21 Cavilon TOP 1 applic PRN PRN Administration Skin Care Mirtazapine 15 mg 05/22/17 22:00 05/28/17 20:12 Remeron PO 15 mg QPM TYRON Administration Morphine Sulfate 2 mg 05/22/17 21:04 05/27/17 03:24 Morphine (Carpuject) IVP 2 mg Q2HR PRN Administration Pain 8 to 10 Pantoprazole Sodium 40 mg 05/23/17 07:00 05/29/17 06:14 Protonix IVP 40 mg QDAC TYRON Administration Polyethylene Glycol 17 gm 05/23/17 09:00 05/29/17 08:42 Miralax PO Not Given DAILY TYRON Multivit/Folic Acid/Iron 1 tab 05/27/17 08:00 05/29/17 08:42 Trinatal Rx 1 PO 1 tab DAILYWM TYRON Administration Prochlorperazine Edisylate 10 mg 05/22/17 21:04 05/27/17 03:20 Compazine Inj IVP 10 mg Q6HR PRN Administration Nausea / Vomiting Sodium Chloride 10 ml 05/22/17 21:04 05/29/17 06:14 Normal Saline Flush 0.9% IVP 10 ml PRN PRN Administration NEEDED PER PROVIDER ORDERS Sodium Chloride 10 ml 05/22/17 22:00 05/29/17 11:17 Normal Saline Flush 0.9% IVP Not Given Q8HR TYRON Sucralfate 1 gm 05/22/17 23:00 05/29/17 11:53 Carafate PO 1 gm 0700,1100,1600,2200 TYRON Administration - Lab Result Fish Bone Diagrams: 05/27/17 04:49 05/28/17 05:15 - Additional Planning My Orders: My Active Orders 05/29/17 Brain W/O [MRI] Routine Clinical Swallow Evaluation [ST] Routine 05/29/17 14:53 Sodium Chloride 0.9% [Normal Saline 0.9%] 1,000 ml IV 100 mls/hr 05/29/17 14:54 Miscellaenous Nursing Order [RC] QSHIFT Subjective - Subjective Patient Reports: Feeling Better Nursing Reports: Other (Was able to do more with PT today) Objective Vital Signs: Vital Signs - 24 hr 05/28/17 05/28/17 05/28/17 15:40 19:48 23:52 Temperature 36.6 C 36.5 C 36.2 C L Heart Rate [ Activity] Heart Rate [ 98 95 95 Brachial] Respiratory 16 14 18 Rate Blood Pressure 114/65 117/71 111/63 [Left Brachial artery] O2 Saturation 95 96 96 O2 Saturation [ With Activity] 05/29/17 05/29/17 05/29/17 05:07 07:33 11:55 Temperature 36.4 C L 36.4 C L Heart Rate [ 104 H Activity] Heart Rate [ 96 90 Brachial] Respiratory 16 16 Rate Blood Pressure 118/69 93/65 [Left Brachial artery] O2 Saturation 94 94 O2 Saturation [ 94 With Activity] 05/29/17 12:20 Temperature 36.5 C Heart Rate [ Activity] Heart Rate [ 101 H Brachial] Respiratory 20 Rate Blood Pressure 103/64 [Left Brachial artery] O2 Saturation 94 O2 Saturation [ With Activity] Oxygen O2 Source [With Activity] Room air O2 Source Room air I&O (Last 24 Hrs): Intake and Output Totals x24h 05/27/17 05/28/17 05/29/17 23:59 23:59 23:59 Intake Total 3120.001 3237.083 1885.001 Output Total 2250 1700 1200 Balance 659.001 7657.083 685.001 General: Alert, Other (slurred/ slow speech (which the daughter noticed too, and says it is vinayak jhis norm)) HEENT: Mucous membr. moist/pink, Other (Icteric Eyes close while talking) Neck: Supple, No JVD Neuro: Other (Slight L facial droop (which daughter notices too)) Cardiovascular: No murmurs Respiratory: No respiratory distress Abdomen: Other (Distended, tense, non-tender, normal BS) Extremities: No edema - Results Results: Laboratory Results WBC 6.6 x10^3/uL (4.8-10.8) 05/27/17 04:49 RBC 3.59 10^6/uL (4.70-6.10) L 05/27/17 04:49 Hgb 13.7 g/dL (14.0-18.0) L 05/27/17 04:49 Hct 39.1 % (42.0-52.0) L 05/27/17 04:49 MCV 109.1 fL (80.0-94.0) H 05/27/17 04:49 MCH 38.2 pg (27.0-31.0) H 05/27/17 04:49 MCHC 35.0 g/dL (32.0-36.0) 05/27/17 04:49 RDW 17.4 % (12.0-15.0) H 05/27/17 04:49 Plt Count 60 10^3/uL (130-450) L 05/27/17 04:49 MPV 8.7 fL (7.4-11.4) 05/27/17 04:49 Neut # 5.9 10^3/uL (1.5-6.6) 05/23/17 05:20 Lymph # 0.3 10^3/uL (1.5-3.5) L 05/23/17 05:20 [place] # 0.6 10^3/uL (0.0-1.0) 05/23/17 05:20 Eos # 0.0 10^3/uL (0.0-0.7) 05/23/17 05:20 Baso # 0.0 10^3/uL (0.0-0.1) 05/23/17 05:20 Absolute Nucleated RBC 0.02 x10^3/uL 05/23/17 05:20 Nucleated RBC % 0.3 /100WBC 05/23/17 05:20 Manual Slide Review Indicated 05/22/17 17:44 WBC Morphology NORMAL APPEARANCE (NORMAL) 05/22/17 17:44 Platelet Estimate DECREASED (<130,000) (NORMAL) 05/22/17 17:44 Platelet Morphology NORMAL APPEARANCE (NORMAL) 05/22/17 17:44 RBC Morph Micro Appear 2+ MACROCYTOSIS (NORMAL) 1+ POLYCHROMASIA (NORMAL) 05/22/17 17:44 RBC Morph Micro Appear 2+ MACROCYTOSIS (NORMAL) 1+ POLYCHROMASIA (NORMAL) 05/22/17 17:44 PT 18.0 secs (9.9-12.6) H 05/22/17 17:44 INR 1.6 (0.8-1.2) H 05/22/17 17:44 Sodium 132 mmol/L (135-145) L 05/28/17 05:15 Potassium 4.3 mmol/L (3.5-5.0) 05/28/17 05:15 Chloride 103 mmol/L (101-111) 05/28/17 05:15 Carbon Dioxide 19 mmol/L (21-32) L 05/28/17 05:15 Anion Gap 10.0 (6-13) 05/28/17 05:15 BUN 80 mg/dL (6-20) H* 05/28/17 05:15 Creatinine 2.5 mg/dL (0.6-1.2) H 05/28/17 05:15 Estimated GFR (MDRD) 26 (>89) L 05/28/17 05:15 Glucose 116 mg/dL (70-100) H 05/28/17 05:15 Serum Osmolality 303 mOsm/kg (278-305) 05/24/17 13:16 Calcium 8.4 mg/dL (8.5-10.3) L 05/28/17 05:15 Phosphorus 3.8 mg/dL (2.5-4.6) 05/26/17 05:18 Magnesium 1.8 mg/dL (1.7-2.8) 05/26/17 05:18 Total Bilirubin 14.5 mg/dL (0.2-1.0) H 05/23/17 05:20 AST 209 IU/L (10-42) H 05/23/17 05:20 ALT 118 IU/L (10-60) H 05/23/17 05:20 Alkaline Phosphatase 100 IU/L (42-121) 05/23/17 05:20 Ammonia 46.7 umol/L (7-35) H 05/26/17 05:18 B-Natriuretic Peptide 41 pg/mL (5-100) 05/22/17 17:44 Total Protein 4.9 g/dL (6.7-8.2) L 05/23/17 05:20 Albumin 2.7 g/dL (3.2-5.5) L 05/23/17 05:20 Globulin 2.2 g/dL (2.1-4.2) 05/23/17 05:20 Albumin/Globulin Ratio 1.2 (1.0-2.2) 05/23/17 05:20 Lipase 42 U/L (22-51) 05/22/17 17:44 Vitamin B12 1388 pg/mL (180-914) H 05/27/17 04:49 Folate 1.76 ng/mL (5.90 - >24.8) L 05/27/17 04:49 TSH 0.93 uIU/mL (0.34-5.60) 05/22/17 17:44 Urine Color BROWN 05/22/17 19:20 Urine Clarity CLOUDY (CLEAR) 05/22/17 19:20 Urine pH 5.0 PH (5.0-7.5) 05/22/17 19:20 Ur Specific [place] >=1.030 (1.002-1.030) H 05/22/17 19:20 Urine Protein 30 mg/dL (NEGATIVE) H 05/22/17 19:20 Urine Glucose (UA) 100 mg/dL (NEGATIVE) H 05/22/17 19:20 Urine Ketones 15 mg/dL (NEGATIVE) H 05/22/17 19:20 Urine Occult Blood MODERATE (NEGATIVE) H 05/22/17 19:20 Urine Nitrite POSITIVE (NEGATIVE) H 05/22/17 19:20 Urine Bilirubin LARGE (NEGATIVE) H 05/22/17 19:20 Urine Urobilinogen >=8.0 E.U./dL (NORMAL) H 05/22/17 19:20 Ur Leukocyte Esterase MODERATE (NEGATIVE) H 05/22/17 19:20 Urine RBC 11-25 /HPF (0-5) H 05/22/17 19:20 Urine WBC >25 /HPF (0-3) H 05/22/17 19:20 Ur Squamous Epith Cells MOD Squamous (<= Few) H 05/22/17 19:20 Urine Crystals 11-25 Bilirubin /LPF 05/22/17 19:20 Urine Bacteria Moderate /HPF (None Seen) H 05/22/17 19:20 Ur Microscopic Review INDICATED 05/22/17 19:20 Urine Culture Comments NOT INDICATED 05/22/17 19:20 Urine Osmolality 253 mOsm/kg (50-1200) 05/24/17 13:16 Urine Sodium < 12.0 mmol/L 05/24/17 13:15 Salicylates 7.1 mg/dL 05/22/17 17:44 Acetaminophen < 10 ug/mL (10-30) L 05/22/17 17:44 Ethyl Alcohol 21.9 mg/dL 05/22/17 17:44 - Procedures Procedures: Procedures EXCISION OF ASCENDING COLON, ENDO (04/04/15) EXCISION OF STOMACH, ENDO, DIAGN (06/04/15) [ESWL] OF THE KIDNEY, URETER AND/OR BLADDER (10/31/14)
[2017-05-29] MEDS: FOLIC ACID 1 MG TABLET PO SCH (17:18)
[2017-05-29] MEDS: NITROFURANTOIN MACRO 100 MG CAPSULE PO SCH ×2 (17:19→21:06)
--- NOTE | 2017-05-29 17:50 | MRI Preliminary Report ---
Exam: MRI BRAIN W/O Impression: 1. The images are degraded by extensive motion. Given this limitation, there is no large area of diff usion restriction to suggest a larger area of acute or subacute cerebral infarction. 2. There is mild degree of chronic small vessel ischemia and mild degree of generalized volume loss. 3. There is no evidence of brain mass. SITE ID: [id number]
[2017-05-29] MEDS: MIRTAZAPINE 15 MG TABLET PO SCH (21:04)
--- NOTE | 2017-05-29 22:01 | MRI Report ---
EXAM: MRI BRAIN WITHOUT CONTRAST EXAM DATE: 05/29/2017 05:15 PM. CLINICAL HISTORY: Left-sided facial droop, slurred speech. COMPARISON: CT scan of the head without contrast 05/22/2017 and MRI of the brain without contrast 07/2016. TECHNIQUE: Multiplanar, multisequence T1-weighted and fluid-sensitive MR sequences of the brain were performed. Sequences optimized for routine evaluation. Other: None. IV Contrast: None. FINDINGS: The diffusion-weighted images are normal. There is no evidence of acute or subacute cerebral infarcti on. The images are degraded by motion. The pituitary and sella are normal. The craniocervical junction is normal. The corpus callosum is of normal size and configuration. The cerebral vascular flow voids are patent. The FLAIR images demonstrate multiple punctuate T2 hyper intensities within the subcortical, deep, and periventricular white matter. This is consistent with a mild degree of chronic small vessel ischemia. There is enlargement of the lateral ventricles and the third ventricle but not out of proportion to the enlargement of the cerebral sulci. This is consiste nt with a mild degree of generalized volume loss. The punctate focus of susceptibility demonstrated within the periventricular white matter of the atri um of the left lateral ventricle is poorly demonstrated on today's axial gradient recalled echo seque nce due to motion. The optic nerves demonstrate symmetric signal intensity and size. The cerebral vascular flow voids a re patent. IMPRESSION: 1. The images are degraded by extensive motion. Given this limitation, there is no large area of diff usion restriction to suggest a larger area of acute or subacute cerebral infarction. 2. There is mild degree of chronic small vessel ischemia and mild degree of generalized volume loss. 3. There is no evidence of brain mass. Referring Provider Line: [phone] SITE ID: [id number]
[2017-05-30] MEDS: SODIUM CHLORIDE 0.9% 1,000 ML IV SCH (02:12)
[2017-05-30] MEDS: CIPROFLOXACIN 200 MG/100 ML 100 ML IV SCH (02:17)
[2017-05-30 06:15] LABS: BASOPHILS % (AUTO) 0.5 %; EOSINOPHILS # (AUTO) 0.2 10^3/uL (0.0-0.7); EOSINOPHILS % (AUTO) 2.5 %; HGB - HEMOGLOBIN 14.1 g/dL (14.0-18.0); LYMPHOCYTES # (AUTO) 0.4 10^3/uL (1.5-3.5); LYMPHOCYTES % (AUTO) 5.8 %; MEAN CORPUSCULAR HEMOGLOBIN 38.3 pg (27.0-31.0); MEAN CORPUSCULAR HGB CONC 34.3 g/dL (32.0-36.0); MEAN CORPUSCULAR VOLUME 111.8 fL (80.0-94.0); MEAN PLATELET VOLUME 8.3 fL (7.4-11.4); MONOCYTES % (AUTO) 14.1 %; NEUTROPHILS # (AUTO) 5.4 10^3/uL (1.5-6.6); NEUTROPHILS % (AUTO) 77.1 %; PLT - PLATELET COUNT 58 10^3/uL (130-450); RED BLOOD COUNT 3.67 10^6/uL (4.70-6.10); RED CELL DISTRIBUTION WIDTH 18.2 % (12.0-15.0); WHITE BLOOD COUNT 7.1 x10^3/uL (4.8-10.8)
[2017-05-30 06:23] LABS: ALBUMIN 3.1 g/dL (3.2-5.5); ALBUMIN/GLOBULIN RATIO 1.7 (1.0-2.2); BILIRUBIN,TOTAL 13.7 mg/dL (0.2-1.0); CALCIUM 8.6 mg/dL (8.5-10.3); CREATININE 1.9 mg/dL (0.6-1.2); TOTAL PROTEIN 4.9 g/dL (6.7-8.2)
[2017-05-30] MEDS: SUCRALFATE 1 GM/10 ML UDC PO SCH ×2 (06:47→10:17)
[2017-05-30] MEDS: SODIUM CHLORIDE FLUSH 0.9% 10 ML SYRINGE IVP SCH ×3 (06:48→20:57)
[2017-05-30] MEDS: PANTOPRAZOLE 40 MG VIAL IVP SCH (06:48)
[2017-05-30 06:51] LABS: PLATELET ESTIMATE, MANUAL DECREASED (<130,000) (NORMAL)
[2017-05-30] MEDS ORDERED: SODIUM CHLORIDE 0.9% 1,000 ML IV SCH (08:13)
[2017-05-30] MEDS: LACTULOSE 10 GM /15 ML UDC PO SCH (10:16)
[2017-05-30] MEDS: POLYETHYLENE GLYCOL 3350 17 GM PACKET PO SCH (10:16)
[2017-05-30] MEDS: FOLIC ACID 1 MG TABLET PO SCH (10:17)
[2017-05-30] MEDS: levETIRAcetam 250 MG TABLET PO SCH ×2 (10:18→20:57)
[2017-05-30] MEDS: NITROFURANTOIN MACRO 100 MG CAPSULE PO SCH ×2 (10:18→20:57)
[2017-05-30] MEDS: THIAMINE 100 MG TABLET PO SCH (10:18)
[2017-05-30] MEDS: MULTIVITAMIN 10 ML in SODIUM CHLORIDE 0.9% 1,000 ML IV SCH (11:31)
--- NOTE | 2017-05-30 17:41 | PROVIDER PROGRESS NOTE ---
Assessment/Plan - Problem List (1) Hepatorenal syndrome Assessment/Plan: Improving BUN/creat daily. Will ddecrease peripheral fluid rate and continue to follow labs daily. (2) Cirrhosis of liver with ascites Qualifiers: Hepatic cirrhosis type: alcoholic cirrhosis Qualified Code(s): K70.31 - Alcoholic cirrhosis of liver with ascites Assessment/Plan: Ammonia level has leveled out. Plts low and MCV elevated, consistent with alcoholic liver failure. Tomorrow will stop iv saline. Continue present meds (Lactulose) and plan. (3) Altered mental status Qualifiers: Altered mental status type: disorientation Qualified Code(s): R41.0 - Disorientation, unspecified Assessment/Plan: His affect is flat. He is alert and oriented x3. He is on anti-depressant and Keppra. (4) Hyponatremia Assessment/Plan: Resolved with saline hydration, infusing since admission. Will decrease iv rate and stop it tomorrow. (5) UTI (urinary tract infection) Qualifiers: Urinary tract infection type: acute cystitis Assessment/Plan: Pt as on iv Cipro initially, now on po Nitrofurantoin. Will plan a 14 day total course - Current Meds Current Meds: Current Medications Generic Name Dose Route Start Last Admin Trade Name Freq PRN Reason Stop Dose Admin Carboxymethylcellulose 1 drops 05/26/17 14:05 05/28/17 20:15 Refresh 1% Ophth Drops EACHEYE 1 applic PRN PRN Administration Dry Eye Cetirizine HCl 5 mg 05/22/17 21:12 05/29/17 23:52 Zyrtec PO 5 mg DAILY PRN Administration ALLERGIES Folic Acid 1 mg 05/29/17 16:00 05/30/17 10:17 PO 1 mg DAILY TYRON Administration Multivitamins 10 ml/ Sodium 1,010 mls @ 100 mls/hr 05/27/17 08:00 05/30/17 11 :31 Chloride IV 100 mls/hr DAILY TYRON Administration Sodium Chloride 1,000 mls @ 60 mls/hr 05/30/17 08:13 05/30/17 10:51 Normal Saline 0.9% IV Not Given .[id number] TYRON Lactulose 10 gm 05/23/17 09:00 05/30/17 10:16 Enulose PO 10 gm DAILY TYRON Administration Levetiracetam 500 mg 05/22/17 22:00 05/30/17 10:18 Keppra PO 500 mg BID TYRON Administration Mineral Oil 1 applic 05/26/17 14:05 05/27/17 09:21 Cavilon TOP 1 applic PRN PRN Administration Skin Care Mirtazapine 15 mg 05/22/17 22:00 05/29/17 21:04 Remeron PO 15 mg QPM TYRON Administration Nitrofurantoin 100 mg 05/29/17 18:00 05/30/17 10:18 Macrobid PO 100 mg BID TYRON Administration Polyethylene Glycol 17 gm 05/23/17 09:00 05/30/17 10:16 Miralax PO Not Given DAILY TYRON Prochlorperazine Edisylate 10 mg 05/22/17 21:04 05/27/17 03:20 Compazine Inj IVP 10 mg Q6HR PRN Administration Nausea / Vomiting Sodium Chloride 10 ml 05/22/17 21:04 05/29/17 06:14 Normal Saline Flush 0.9% IVP 10 ml PRN PRN Administration NEEDED PER PROVIDER ORDERS Sodium Chloride 10 ml 05/22/17 22:00 05/30/17 14:55 Normal Saline Flush 0.9% IVP Not Given Q8HR [facility] Sucralfate 1 gm 05/30/17 09:00 05/30/17 10:17 Carafate PO 1 gm DAILY TYRON Administration Thiamine HCl 100 mg 05/30/17 09:00 05/30/17 10:18 Vitamin B-1 PO 100 mg DAILY TYRON Administration - Lab Result Fish Bone Diagrams: 05/30/17 05:25 05/30/17 05:25 - Additional Planning My Orders: My Active Orders 05/29/17 18:00 Nitrofurantoin [Macrobid] 100 mg PO BID 05/30/17 08:13 Sodium Chloride 0.9% [Normal Saline 0.9%] 1,000 ml IV 60 mls/hr 05/30/17 09:00 Sucralfate [Carafate] 1 gm PO DAILY Thiamine [Vitamin B-1] 100 mg PO DAILY 05/30/17 Dinner Regular Diet [DIET] Objective Vital Signs: Vital Signs - 24 hr 05/29/17 05/30/17 05/30/17 20:55 00:15 05:00 Temperature 36.3 C L 36.2 C L 36.2 C L Heart Rate [ 99 91 89 Brachial] Respiratory 13 18 18 Rate Blood Pressure 99/62 115/68 104/66 [Left Brachial artery] O2 Saturation 96 96 93 05/30/17 05/30/17 05/30/17 07:34 10:38 12:16 Temperature 36.3 C L 36.4 C L Heart Rate [ 92 104 H 90 Brachial] Respiratory 16 18 Rate Blood Pressure 91/63 113/68 124/71 [Left Brachial artery] O2 Saturation 95 97 97 05/30/17 15:32 Temperature 36.1 C L Heart Rate [ 93 Brachial] Respiratory 20 Rate Blood Pressure 132/79 H [Left Brachial artery] O2 Saturation 95 Oxygen O2 Source [With Activity] Room air O2 Source Room air I&O (Last 24 Hrs): Intake and Output Totals x24h 05/28/17 05/29/17 05/30/17 23:59 23:59 23:59 Intake Total 3237.083 2238.334 1907.006 Output Total 1700 1550 1275 Balance 1537.083 688.334 632.006 - Results Results: Laboratory Results WBC 7.1 x10^3/uL (4.8-10.8) 05/30/17 05:25 RBC 3.67 10^6/uL (4.70-6.10) L 05/30/17 05:25 Hgb 14.1 g/dL (14.0-18.0) 05/30/17 05:25 Hct 41.0 % (42.0-52.0) L 05/30/17 05:25 MCV 111.8 fL (80.0-94.0) H 05/30/17 05:25 MCH 38.3 pg (27.0-31.0) H 05/30/17 05:25 MCHC 34.3 g/dL (32.0-36.0) 05/30/17 05:25 RDW 18.2 % (12.0-15.0) H 05/30/17 05:25 Plt Count 58 10^3/uL (130-450) L 05/30/17 05:25 MPV 8.3 fL (7.4-11.4) 05/30/17 05:25 Neut # 5.4 10^3/uL (1.5-6.6) 05/30/17 05:25 Lymph # 0.4 10^3/uL (1.5-3.5) L 05/30/17 05:25 [place] # 1.0 10^3/uL (0.0-1.0) 05/30/17 05:25 Eos # 0.2 10^3/uL (0.0-0.7) 05/30/17 05:25 Baso # 0.0 10^3/uL (0.0-0.1) 05/30/17 05:25 Absolute Nucleated RBC 0.00 x10^3/uL 05/30/17 05:25 Nucleated RBC % 0.1 /100WBC 05/30/17 05:25 Manual Slide Review Indicated 05/30/17 05:25 WBC Morphology NORMAL APPEARANCE (NORMAL) 05/22/17 17:44 Platelet Estimate DECREASED (<130,000) (NORMAL) 05/30/17 05:25 Platelet Morphology NORMAL APPEARANCE (NORMAL) 05/22/17 17:44 RBC Morph Micro Appear 2+ MACROCYTOSIS (NORMAL) 1+ POLYCHROMASIA (NORMAL) 05/22/17 17:44 RBC Morph Micro Appear 1+ HYPOCHROMASIA (NORMAL) 1+ MACROCYTOSIS (NORMAL) 05/30/17 05:25 RBC Morph Micro Appear 1+ HYPOCHROMASIA (NORMAL) 1+ MACROCYTOSIS (NORMAL) 05/30/17 05:25 PT 18.0 secs (9.9-12.6) H 05/22/17 17:44 INR 1.6 (0.8-1.2) H 05/22/17 17:44 Sodium 138 mmol/L (135-145) 05/30/17 05:25 Potassium 4.4 mmol/L (3.5-5.0) 05/30/17 05:25 Chloride 109 mmol/L (101-111) 05/30/17 05:25 Carbon Dioxide 20 mmol/L (21-32) L 05/30/17 05:25 Anion Gap 9.0 (6-13) 05/30/17 05:25 BUN 78 mg/dL (6-20) H 05/30/17 05:25 Creatinine 1.9 mg/dL (0.6-1.2) H 05/30/17 05:25 Estimated GFR (MDRD) 36 (>89) L 05/30/17 05:25 Glucose 107 mg/dL (70-100) H 05/30/17 05:25 Serum Osmolality 303 mOsm/kg (278-305) 05/24/17 13:16 Calcium 8.6 mg/dL (8.5-10.3) 05/30/17 05:25 Phosphorus 3.8 mg/dL (2.5-4.6) 05/26/17 05:18 Magnesium 1.8 mg/dL (1.7-2.8) 05/26/17 05:18 Total Bilirubin 13.7 mg/dL (0.2-1.0) H 05/30/17 05:25 AST 128 IU/L (10-42) H 05/30/17 05:25 ALT 76 IU/L (10-60) H 05/30/17 05:25 Alkaline Phosphatase 82 IU/L (42-121) 05/30/17 05:25 Ammonia 45.0 umol/L (7-35) H 05/30/17 12:10 B-Natriuretic Peptide 41 pg/mL (5-100) 05/22/17 17:44 Total Protein 4.9 g/dL (6.7-8.2) L 05/30/17 05:25 Albumin 3.1 g/dL (3.2-5.5) L 05/30/17 05:25 Globulin 1.8 g/dL (2.1-4.2) L 05/30/17 05:25 Albumin/Globulin Ratio 1.7 (1.0-2.2) 05/30/17 05:25 Lipase 42 U/L (22-51) 05/22/17 17:44 Vitamin B12 1388 pg/mL (180-914) H 05/27/17 04:49 Folate 1.76 ng/mL (5.90 - >24.8) L 05/27/17 04:49 TSH 0.93 uIU/mL (0.34-5.60) 05/22/17 17:44 Urine Color BROWN 05/22/17 19:20 Urine Clarity CLOUDY (CLEAR) 05/22/17 19:20 Urine pH 5.0 PH (5.0-7.5) 05/22/17 19:20 Ur Specific [place] >=1.030 (1.002-1.030) H 05/22/17 19:20 Urine Protein 30 mg/dL (NEGATIVE) H 05/22/17 19:20 Urine Glucose (UA) 100 mg/dL (NEGATIVE) H 05/22/17 19:20 Urine Ketones 15 mg/dL (NEGATIVE) H 05/22/17 19:20 Urine Occult Blood MODERATE (NEGATIVE) H 05/22/17 19:20 Urine Nitrite POSITIVE (NEGATIVE) H 05/22/17 19:20 Urine Bilirubin LARGE (NEGATIVE) H 05/22/17 19:20 Urine Urobilinogen >=8.0 E.U./dL (NORMAL) H 05/22/17 19:20 Ur Leukocyte Esterase MODERATE (NEGATIVE) H 05/22/17 19:20 Urine RBC 11-25 /HPF (0-5) H 05/22/17 19:20 Urine WBC >25 /HPF (0-3) H 05/22/17 19:20 Ur Squamous Epith Cells MOD Squamous (<= Few) H 05/22/17 19:20 Urine Crystals 11-25 Bilirubin /LPF 05/22/17 19:20 Urine Bacteria Moderate /HPF (None Seen) H 05/22/17 19:20 Ur Microscopic Review INDICATED 05/22/17 19:20 Urine Culture Comments NOT INDICATED 05/22/17 19:20 Urine Osmolality 253 mOsm/kg (50-1200) 05/24/17 13:16 Urine Sodium < 12.0 mmol/L 05/24/17 13:15 Salicylates 7.1 mg/dL 05/22/17 17:44 Acetaminophen < 10 ug/mL (10-30) L 05/22/17 17:44 Ethyl Alcohol 21.9 mg/dL 05/22/17 17:44 - Procedures Procedures: Procedures EXCISION OF ASCENDING COLON, ENDO (04/04/15) EXCISION OF STOMACH, ENDO, DIAGN (06/04/15) [ESWL] OF THE KIDNEY, URETER AND/OR BLADDER (10/31/14)
[2017-05-30] MEDS: MIRTAZAPINE 15 MG TABLET PO SCH (20:57)
[2017-05-31] MEDS: SODIUM CHLORIDE FLUSH 0.9% 10 ML SYRINGE IVP SCH (05:26)
[2017-05-31 05:37] LABS: BASOPHILS % (AUTO) 0.6 %; EOSINOPHILS # (AUTO) 0.1 10^3/uL (0.0-0.7); EOSINOPHILS % (AUTO) 1.9 %; HGB - HEMOGLOBIN 14.2 g/dL (14.0-18.0); LYMPHOCYTES # (AUTO) 0.4 10^3/uL (1.5-3.5); LYMPHOCYTES % (AUTO) 4.7 %; MEAN CORPUSCULAR HEMOGLOBIN 38.5 pg (27.0-31.0); MEAN CORPUSCULAR HGB CONC 34.4 g/dL (32.0-36.0); MEAN CORPUSCULAR VOLUME 111.7 fL (80.0-94.0); MEAN PLATELET VOLUME 8.1 fL (7.4-11.4); MONOCYTES # (AUTO) 0.9 10^3/uL (0.0-1.0); MONOCYTES % (AUTO) 11.4 %; NEUTROPHILS # (AUTO) 6.4 10^3/uL (1.5-6.6); NEUTROPHILS % (AUTO) 81.4 %; PLT - PLATELET COUNT 58 10^3/uL (130-450); RED BLOOD COUNT 3.68 10^6/uL (4.70-6.10); RED CELL DISTRIBUTION WIDTH 17.9 % (12.0-15.0); WHITE BLOOD COUNT 7.8 x10^3/uL (4.8-10.8)
[2017-05-31 06:07] LABS: ALBUMIN 3.2 g/dL (3.2-5.5); ALBUMIN/GLOBULIN RATIO 1.9 (1.0-2.2); BILIRUBIN,TOTAL 12.7 mg/dL (0.2-1.0); CALCIUM 8.8 mg/dL (8.5-10.3); CREATININE 1.8 mg/dL (0.6-1.2); TOTAL PROTEIN 4.9 g/dL (6.7-8.2)
[2017-05-31 07:48] VITALS: BP 117/72
[2017-05-31] MEDS: FOLIC ACID 1 MG TABLET PO SCH (10:23)
[2017-05-31] MEDS: LACTULOSE 10 GM /15 ML UDC PO SCH (10:23)
[2017-05-31] MEDS: THIAMINE 100 MG TABLET PO SCH (10:23)
[2017-05-31] MEDS: NITROFURANTOIN MACRO 100 MG CAPSULE PO SCH (10:23)
[2017-05-31] MEDS: SUCRALFATE 1 GM/10 ML UDC PO SCH (10:23)
[2017-05-31] MEDS: levETIRAcetam 250 MG TABLET PO SCH (10:24)
[2017-05-31] MEDS: POLYETHYLENE GLYCOL 3350 17 GM PACKET PO SCH (10:24)
--- NOTE | 2017-05-31 11:11 | Discharge Plan ---
Discharge Plan Disposition: 03 DC/Xfer Condition: Stable Prescriptions: Cetirizine HCl 5 mg PO DAILY PRN #15 tablet PRN Reason: ALLERGIES Levetiracetam [Keppra] 500 mg PO BID #30 tablet Mirtazapine 15 mg PO QPM #30 tab.rapdis Spironolactone 25 mg PO DAILY #30 tablet Diet: Soft Activity Restrictions: Activity as Tolerated No Smoking: If you smoke, Please STOP! Call for help. Follow-up with: Carl Moulton MD [Primary Care Provider] -
--- NOTE | 2017-05-31 11:15 | Discharge Plan ---
"Discharge Plan for SNF / [facility] - DC Plan and Transition Orders Disposition: 03 SNF DC/Xfer Condition: Stable SNF Transition Orders: Admit to: [Facility] under the care of [Doctor Name] Discharge Diagnosis: [] Medicare Certification: I certify that [facility] care is medically necessary on a continuing basis for any of the conditions for which she/he is receiving care during hospitalization. Notify PCP of admission and forward orders to primary provider for signature. Weight on admission and [Daily/Weekly/Monthly]. Call PCP immediately if weight increases by [Number] pounds or if patient develops dyspnea, chest pain/ tightness or edema. House Bowel Program: [Yes/No] If no BM after 2 days, nurse may give M.O.M. 30ml PO PRN and /or ducolax Supp 1 [place] and /or ZO 250mg P.O., and/or senna 1-2 tabs PO. On day 3 nurse may give repeat above order until residents constipation is resolved. Immunizations: Annual Influenza Vaccine: [Yes/No]. (between Dec 06 and July 05.) Unless allergy or already given Two-Step PPD: [Yes/No] per [facility] [id number] or appropriate documentation of approved exceptions Treatments & Other Orders: [] Oxygen Orders: [] Lab Tests or X-Rays Orders: [] Orthopedic Orders: [Remove Sutures/Emely and Comment]. Medications: PLEASE REFER TO THE DISCHARGE MEDICATION LIST. Insulin Orders? [Yes/No] Diagnosis: Diabetes Initiate hypo and hyperglycemia protocols for BG <70 and BG >375. May check BG prn for signs/symptoms of dysglycemia. Frequency of BG checks: [AC/Meal/HS] Basal Insulin: [] Lantus 100 units / ml inject subq as follows: [] [] Other: [] Correction Insulin: - Select the type of insulin below [Choose: Novolog/Humalog]100 units /ml insulin inject subq per orders indicate below [] LOW DOSE [] MODERATE DOSE [] MODERATE/HIGH DOSE [] HIGH DOSE GB UNITS GB UNITS GB UNITS GB UNITS 61-140 0 UNITS 61-140 0 UNITS 61-140 0 UNITS 61-140 0 UNITS 141-175 1 UNITS 141-175 1 UNITS 141-175 2 UNITS 141-175 3 UNITS 176-225 2 UNITS 176-225 3 UNITS 176-225 4 UNITS 176-225 5 UNITS 226-275 3 UNITS 226-275 5 UNITS 226-275 6 UNITS 226-275 7 UNITS 276-325 4 UNITS 276-325 7 UNITS 276-325 8 UNITS 276-325 9 UNITS 326-375 5 UNITS 326-375 9 UNITS 326-375 10 UNITS 326-375 11 UNITS >375 CONTACT MD >375 CONTACT MD >375 CONTACT MD >375 CONTACT MD Custom Dosing: [Choose: None/Novolog/Humalog] 100 units/ml Insulin inject subq as follows: GB Units 61-140 [] Units 141-175 [] Units 176-225 [] Units 226-275 [] Units 276-325 []Units 326-375 [] Units >375 Contact MD Allergies and Adverse Reactions: Allergies Allergy/AdvReac Type Severity Reaction Status Date / Time No Known Drug Allergies Allergy Verified 05/22/17 16:21 - Medications New Prescriptions: Cetirizine HCl 5 mg PO DAILY PRN #15 tablet PRN Reason: ALLERGIES Levetiracetam [Keppra] 500 mg PO BID #30 tablet Mirtazapine 15 mg PO QPM #30 tab.rapdis Spironolactone 25 mg PO DAILY #30 tablet - Diet Texture: Mech soft Liquids: Thin May have monthly special meal: Yes - Therapies | Activity Therapy: Evaluation | Treat if indicated: PT, OT Rehabilitation Potential: Maximize functional status, Return to independent living Activity: Activity as Tolerated Weight Bearing: Full Weight Follow Up: With PCP in 1 week"
--- NOTE | 2017-05-31 11:19 | DISCHARGE SUMMARY ---
Discharge Summary Admit Date: 05/23/17 Discharge Date: 05/31/17 Discharging Provider: Paige Jacobs DO Primary Care Provider: Kiran Dooley Code Status: Attempt Resuscitation Condition at Discharge: Stable Discharge Disposition: 03 [facility] DC/Xfer - DIAGNOSES Admission Diagnoses: 1. Altered mental status 2. Hyponatremia 3. Jaundice 4. Renal failure 5. Urinary tract infection 6. Elevated MCV with elevated INR consistent with liver failure 7. Alcohol abuse with prior alcohol withdrawal seizures. Discharge Diagnoses with Status of Each Condition: 1. Hepatorenal syndrome- Correcting, patient's creatinine is down to 1.8 today. At its worst it was 5.1.The patient still has significant liver cirrhosis. 2. Altered mental status- Improved, but the patient is still not back to baseline. It is unclear as to what is the cause of the altered mental status however does appear to be chronic at this point. 3. Hyponatremia-118 on admission, 140 today. 4. Renal failure- Likely related to hepatorenal syndrome. I had placed the patient on a norepinephrine drip and gave him albumin for 2 days and his kidneys have "woken up". Creatinine was 1.8 today down from 5.1 at its highest. 5. Urinary tract infection- The patient is currently being treated for the UTI. We will send him home on oral antibiotics. 6. Elevated MCV with elevated INR consistent with liver failure-B12 levels were high normal. We are treating the patient with folic acid at this time. 7. Alcohol abuse with prior alcohol withdrawal seizures- The patient was advised not to wean himself off of alcohol without professional help in the future. - HPI History of Present Illness: Patient is a 61-year-old gentleman who was admitted to [facility] after being seen in the emergency department. He had severe hyponatremia, 118, on admission and this was initially treated with hypertonic saline. Unfortunately this did little to correct the patient's mental status or his sodium levels but given his severe cirrhosis it was felt that it would be prudent to just monitor at this time. The patient's sodium slowly climbed up. Unfortunately his creatinine also continued to climb up until when it reached 5.1 he was placed in the intensive care unit on a norepinephrine drip and given albumin. This woke his kidneys up and the patient has slowly had an improving creatinine since that time, 1.8 today. Today the patient appears to be comfortable. He denies any new problems. He has difficulty making eye contact and his mental status is still not to baseline. He appears comfortable, is eating without any difficulty, and is moving his bowels. He will be discharged to [facility] for long-term care. - HOSPITAL COURSE Hospital Course: Patient is a 61-year-old gentleman who was admitted to [facility] after being seen in the emergency department. He had severe hyponatremia, 118, on admission and this was initially treated with hypertonic saline. Unfortunately this did little to correct the patient's mental status or his sodium levels but given his severe cirrhosis it was felt that it would be prudent to just monitor at this time. The patient's sodium slowly climbed up. Unfortunately his creatinine also continued to climb up until when it reached 5.1 he was placed in the intensive care unit on a norepinephrine drip and given albumin. This woke his kidneys up and the patient has slowly had an improving creatinine since that time, 1.8 today. Today the patient appears to be comfortable. He denies any new problems. He has difficulty making eye contact and his mental status is still not to baseline. He appears comfortable, is eating without any difficulty, and is moving his bowels. He will be discharged to [facility] for long-term care. - ALLERGIES Allergies/Adverse Reactions: Allergies Allergy/AdvReac Type Severity Reaction Status Date / Time No Known Drug Allergies Allergy Verified 05/22/17 16:21 - MEDICATIONS Home Medications: Ambulatory Orders Medication Instructions Recorded Confirmed Pantoprazole [Protonix] 40 mg PO QDAC 05/22/17 05/22/17 Cetirizine HCl 5 mg PO DAILY PRN #15 tablet 05/31/17 Folic Acid 1 mg PO DAILY tablet 05/31/17 Levetiracetam [Keppra] 500 mg PO BID #30 tablet 05/31/17 Mirtazapine 15 mg PO QPM #30 tab.rapdis 05/31/17 Nitrofurantoin [Macrobid] 100 mg PO BID capsule 05/31/17 Spironolactone 25 mg PO DAILY #30 tablet 05/31/17 Thiamine [Vitamin B-1] 100 mg PO DAILY tablet 05/31/17 - PHYSICAL EXAM AT DISCHARGE General Appearance: positive: No acute distress, Alert Eyes Bilateral: positive: Normal inspection, PERRL, EOMI, No lid inflammation, Conjunctivae nml, No scleral icterus ENT: positive: ENT inspection nml, Pharynx nml, No signs of dehydration Neck: positive: Nml inspection, Thyroid nml, No JVD, Trachea midline. negative : Thyromegaly Respiratory: positive: Chest non-tender, No respiratory distress, Breath sounds nml. negative: Wheezes, Rales, Rhonchi Cardiovascular: positive: Regular rate & rhythm, No murmur, No gallop Peripheral Pulses: positive: 1+ Abdomen: positive: Non-tender, No organomegaly, Nml bowel sounds, No distention. negative: Guarding, Rebound Back: positive: Nml inspection. negative: CVA tenderness (R), CVA tenderness (L ) Skin: positive: Color nml, No rash, Warm, Dry. negative: Cyanosis Extremities: positive: Non-tender, Full ROM, Nml appearance, No pedal edema Neurologic/Psychiatric: positive: Oriented x3, CN's nml (2-12), Motor nml, Sensation nml, Mood/affect nml - LABS Result Diagrams: 05/31/17 05:22 05/31/17 05:22 - FOLLOW UP Follow Up: With PCP in 1 week - TIME SPENT Time Spent in Discharge (Minutes): 40
== END 2017-05-31 12:50 | DRG 640 ==
LOC: EDUNIT# → ED 16:10 → MS2 21:04 → ICU 05-25 10:44 → MS2 05-27 10:22
PROVIDERS: ADMIT Internal Medicine; ATTEND Internal Medicine
DX: E87.1 Hypo-osmolality and hyponatremia (principal); K76.7 Hepatorenal syndrome; N39.0 Urinary tract infection, site not specified; N17.9 Acute kidney failure, unspecified; E86.0 Dehydration; F10.20 Alcohol dependence, uncomplicated; G40.909 Epilepsy, unspecified, not intractable, without status epilepticus; K70.31 Alcoholic cirrhosis of liver with ascites; R41.82 Altered mental status, unspecified
CPT/HCPCS: 36415; 51701; 70450; 70551; 71046; 74150; 80048; 80053; 80307; 80320; 80329; 81001; 81003; 82140; 82607; 82746; 83690; 83735; 83880; 83930; 83935; 84100; 84300; 84443; 85025; 85610; 87086; 87150; 93306; 96360; 96361; 99284; 99285